=== PATIENT | female | born 2000 | race Caucasian/White ===

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

== ENCOUNTER 2022-03-06 14:53 | Emergency (ER) | payer OTHER, SELFPAY ==
[2022-03-06 15:03] VITALS: BP 109/79; PULSE 134; RESP 16; TEMP 38.8; O2SAT 98
--- NOTE | 2022-03-06 15:43 | ED.URI ---
HPI - URI/Sore Throat General Chief Complaint: Upper Respiratory Infection Stated Complaint: fever, sore throat, body ache, ear pain Time Seen by Provider: 03/06/22 15:39 Source: patient Mode of arrival: ambulatory Limitations: no limitations History of Present Illness HPI Narrative: Patient presents today complaining of a 3 day history of headache, sore throat, fever, body aches, chills. She currently rates her pain 7/10 and has been taking cold and flu medication as well as Tylenol without relief. She took a home COVID-19 test that was negative. Related Data Allergies Allergy/AdvReac Type Severity Reaction Status Date / Time No Known Allergies Allergy Verified 03/06/22 14:57 Review of Systems Review of Systems: CONSTITUTIONAL: Denies sweats.+ body aches, fever, chills EYES: Denies visual changes, redness, or discharge. ENT: Denies rhinorrhea, congestion, or otalgia.+ Sore throat CARDIOVASCULAR: Denies chest pain, palpitations, or edema. RESPIRATORY: Denies cough or dyspnea. GASTROINTESTINAL: Denies abdominal pain, nausea, vomiting, or diarrhea. GENITOURINARY: Denies dysuria or hematuria. SKIN: Denies rash, itching, or wounds. MUSCULOSKELETAL: Denies back pain, joint pain, or myalgia. NEUROLOGIC: Denies numbness, tingling, or weakness.+ headache PSYCH: Denies depression or anxiety. [facility] Past Medical History Medical History Migraines Family History Family History Grandparent Diabetes mellitus Lung cancer Father Hypertension Other Thyroid gland insufficiency (acquired) Social History Social History Smoking status: Never smoker Second hand tobacco smoke exposure: Yes Substance use: never Gender identity (if verbalized by the patient): Female Spiritual care concerns: No Comments At time of signature, I have reviewed and agree with nursing past medical, surgical, social and family history unless otherwise noted. Please see nursing chart for further information. There is no relevant family history pertinent to the presenting complaint Exam Narrative: GENERAL: mildly ill-appearing, well-nourished, and in no acute distress. HEAD: Normocephalic, atraumatic. EYES: EOMI. No redness or drainage. Conjunctivae normal. ENT: Mucous membranes pink and moist. Nares clear. No rhinorrhea. TMs normal bilaterally. Throat erythematous and moderately edematous. Tonsils 4+ with white exudate. Uvula midline. NECK: Normal AROM. Supple. bilateral anterior and left posterior cervical chain lymphadenopathy. CHEST: No respiratory distress. Clear to auscultation. HEART: Regular rhythm. + Tachycardia.No murmur appreciated. Normal peripheral pulses. EXTREMITIES: Normal range of motion. No edema. SKIN: Warm, dry, no rash. Capillary refill normal. Normal skin turgor. NEURO: No focal deficits. Alert and oriented x3. Gait steady. PSYCH: Normal affect. No signs of depression or anxiety. Course Course Level of Care: Express Care Visit Vital Signs Vital signs: Vital Signs Temperature 101.9 F H 03/06/22 15:03 Pulse Rate 134 H 03/06/22 15:03 Respiratory Rate 16 03/06/22 15:03 Blood Pressure 109/79 03/06/22 15:03 Pulse Oximetry 98 03/06/22 15:03 Oxygen Delivery Room Air 03/06/22 15:03 Temperature 101.9 F H 03/06/22 15:03 Pulse Rate 134 H 03/06/22 15:03 Respiratory Rate 16 03/06/22 15:03 Blood Pressure 109/79 03/06/22 15:03 Pulse Oximetry 98 03/06/22 15:03 Oxygen Delivery Room Air 03/06/22 15:03 Reviewed. Tachycardia due to fever MDM - URI/Sore Throat Differential Diagnosis Differential diagnosis: Likely upper respiratory infection, viral infection, influenza and other ( strep throat, COVID-19) Lab Data Attestation: I reviewed the patient's lab results. Labs: Influenza
== END 2022-03-06 15:54 | disposition home or self-care (01) ==
PROVIDERS: Emergency Provider Nurse Practitioner
DX: J02.0 Streptococcal pharyngitis (principal)
CPT/HCPCS: 87804; 87880; 99213; G0463

== ENCOUNTER 2023-05-06 12:20 | Emergency (ER) | payer OTHER, SELFPAY ==
[2023-05-06 12:46] VITALS: BP 142/90; PULSE 117; RESP 16; TEMP 36.8; O2SAT 100
--- NOTE | 2023-05-06 13:12 | ED.GENADULT ---
HPI - General Adult General Chief complaint: Vaginal Bleeding Stated complaint: vaginal bleeding for 10 days Time Seen by Provider: 05/06/23 13:13 Source: patient Mode of arrival: ambulatory Limitations: no limitations History of Present Illness HPI narrative: 23-year-old female presented for complaint of heavy vaginal bleeding for 10 days. States she is bleeding through super tampon and pads, passing clots, reports fatigue. And woke drenched in blood 2 days ago. 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 No form of control. She is sexually active. Endorses abdominal cramping and low back pain. States the back pain was severe several days ago while at work. Denies n/v/d/f/c. Related Data Home Medications Medication Instructions Recorded Confirmed No Home Medications 05/06/23 05/06/23 Allergies Allergy/AdvReac Type Severity Reaction Status Date / Time No Known Allergies Allergy Verified 05/06/23 13:02 Review of Systems Review of Systems: CONSTITUTIONAL: Denies body aches, fever, chills, or sweats. CARDIOVASCULAR: Denies chest pain, palpitations, or edema. RESPIRATORY: Denies dyspnea. GASTROINTESTINAL: reports abdominal cramping,denies nausea, vomiting, or diarrhea. GENITOURINARY: Reports vaginal bleeding Denies dysuria or hematuria. SKIN: Denies rash, itching, or wounds. MUSCULOSKELETAL: reports back pain, Denies joint pain, or myalgia. NEUROLOGIC: Denies headache, numbness, tingling, or weakness. All systems reviewed & are unremarkable except as noted in HPI and below PMFSH Past Medical History Medical History Migraines Family History Family History Grandparent Diabetes mellitus Lung cancer Father Hypertension Other Thyroid gland insufficiency (acquired) Social History Social History Smoking status: Never smoker Second hand tobacco smoke exposure: Yes Substance use: never Gender identity (if verbalized by the patient): Female Spiritual care concerns: No Comments At time of signature, I have reviewed and agree with nursing past medical, surgical, social and family history unless otherwise noted. Please see nursing chart for further information. There is no relevant family history pertinent to the presenting complaint Exam Narrative: GENERAL: Well-appearing, well-nourished, and in no acute distress. HEAD: Normocephalic, atraumatic. EYES: EOMI. No redness or drainage. Conjunctivae normal. ENT: Mucous membranes pink and moist. No rhinorrhea. TMs normal bilaterally. Throat normal. Uvula midline. NECK: Normal AROM. Supple. No lymphadenopathy. CHEST: No respiratory distress. Clear to auscultation. HEART: Regular rate and rhythm. No murmur appreciated. Normal peripheral pulses. ABDOMEN: Soft, nontender, nondistended, normal active bowel sounds. MUSCULOSKELETAL: No bony tenderness. EXTREMITIES: Normal range of motion. No edema. SKIN: Warm, dry, no rash. Capillary refill normal. Normal skin turgor. NEURO: No focal deficits. Alert and oriented x3. Gait steady. PSYCH: Normal affect. No signs of depression or anxiety. Course Course Emergency Course: Patient is aware of diagnosis, understands and agrees to treatment plan. Anticipatory guidance given. Patient agrees to follow-up as directed and is aware of reasons to seek care at the emergency department. Portions of this record may have been created with voice recognition software Level of Care: Express Care Visit Vital Signs Vital signs: Vital Signs Temperature 98.2 F 05/06/23 12:46 Pulse Rate 117 H 05/06/23 12:46 Respiratory Rate 16 05/06/23 12:46 Blood Pressure 142/90 H 05/06/23 12:46 Pulse Oximetry 100 05/06/23 12:46 Oxygen Delivery Room Air 05/06/23 12:46 Temperature 98.2 F 05/06/23 12:46 Pul
== END 2023-05-06 13:57 | disposition short-term general hospital (02) ==
PROVIDERS: Emergency Provider Nurse Practitioner Family
DX: O20.0 Threatened abortion (principal)
CPT/HCPCS: 81025; 99212; G0463

== ENCOUNTER 2024-03-31 16:13 | Observation (INO) | payer OTHER, SELFPAY ==
[2024-03-31] VITALS (10 sets, daily range): BP systolic 61–126; BP diastolic 51–84; PULSE 79–135; RESP 16; TEMP 36.5; O2SAT 97–100; BMI 34.7
--- NOTE | 2024-03-31 17:07 | OBADM ---
This patient, Nesha Wilcox, admitted to the OB room 116 for observation. Patient/family oriented to hospital policies and general routines including ID bracelet, bed and alarms, visiting hours, pain management, procedures, bathroom and other care routines, personal items, smoking policy, room service/diet, and visiting hours. Patient/Family are encouraged to report perceived risks to care and to ask questions if they do not understand what they are told or what they should do.
[2024-03-31 17:11] LABS: Add Urine Microscopic? YES; Appearance Urine Cloudy (Clear); Bacteria Urine 1+ /hpf; Bilirubin Urine Negative (Negative); Blood Urine Negative (Negative); Color Urine Yellow (Yellow); Glucose Urine UA Trace mg/dL (Negative); Ketones Urine Trace mg/dL (Negative); Leukocyte Esterase Ur 1+ LEU/UL (Negative); Need Manual Microscopic Reviewed; Nitrate Urine Negative (Negative); Non Pathogenic Casts 0-2; Protein Urine Trace mg/dL (Negative); Spermatozoa Urine Present; Squamous Epithelial Cell Urine Few /hpf (Few); pH Urine 6.5 (5.0-9.0)
--- NOTE | 2024-03-31 17:34 | PC.NURSE ---
Dr. María Ledezma informed of this 29 wk walk in pt with c/o lower abdominal cramping and back pain. Cramping since last night. Pt had intercourse last night. Pt has had back pain for the last 3-4 months. 2 contractions or uterine irritability noted. FHT's with 10 beat accels and appropriate for 29 wks. Pt was told by her provider that her placenta wasn't growing . When I questioned pt if it meant her placenta was low and wasn't moving up as the uterus grew, she said she had no idea and that she had asked them to explain it more but was only told that it sometimes happens. SVE was deferred and Dr. María Ledezma in agreement not to check pt. Pt isn't happy with her care at [facility] and would like to find another provider. Dr. María Ledezma states that he will accept her as a transfer of care and she is to call the office and make appointment. OK to dishcarge to home. Pt to increase fluid intake.
--- NOTE | 2024-03-31 18:02 | PC.NURSE ---
Pt is eating her dinner and will call when she is finished.
--- NOTE | 2024-04-03 16:00 | PM.OBTRLD ---
OB - Triage/Final Diagnosis Visit Information Reason for evaluation: threatened labor Comments/Additional reasons for admission: I have assessed the risk for this patient, Nesha Wilcox, and determined that she would benefit from observation care. Evaluation Laboratory results: Laboratory Tests 03/31/24 16:48 Urine Color Yellow Urine Appearance Cloudy H Urine pH 6.5 Ur Specific [place] 1.030 Urine Protein Trace Urine Glucose (UA) Trace H Urine Ketones Trace H Ur Blood (Man) Negative Urine Nitrate Negative Urine Bilirubin Negative Urine Urobilinogen 1.0 Add Ur Microanalysis Reviewed Leukocyte Esterase Rfl 1+ H Urine RBC 3-5 H Urine WBC 11-20 H Ur Squamous Epith Cells Few Urine Bacteria 1+ H Urine Casts 0-2 Sperm Presence Present
== END 2024-03-31 18:13 | disposition home or self-care (01) ==
PROVIDERS: Admitting Provider Obstetrics & Gynecology; Visit Provider Obstetrics & Gynecology
DX: O47.03 False labor before 37 completed weeks of gestation, third trimester (principal); Z3A.29 29 weeks gestation of pregnancy
CPT/HCPCS: 81001; 87086; G0378; G0379

== ENCOUNTER 2024-05-16 17:30 | Outpatient (RCR) | payer MEDICAID, SELFPAY ==
[2024-05-16 18:16] VITALS: BP 113/69; PULSE 98
== END 2024-06-30 16:43 | disposition home or self-care (01) ==
LOC: ANHOBOP 17:30
PROVIDERS: PCP Obstetrics & Gynecology; Visit Provider Obstetrics & Gynecology
DX: O36.8130 Decreased fetal movements, third trimester, not applicable or unspecified (principal); Z3A.35 35 weeks gestation of pregnancy
CPT/HCPCS: 59025

== ENCOUNTER 2024-06-06 11:09 | Outpatient (CLI) | payer OTHER, SELFPAY ==
[2024-06-06 11:30] VITALS: BP 129/79; PULSE 91; BMI 36.8
--- OUTSIDE RECORDS SUMMARY | 2024-06-06 11:56 | XMS_ITS | Data Portability ---
Author Organization [facility] , [facility] Address [address] [place] [address] Assessment No assessment recorded. Plan of Treatment Reminders Order Date Submit Date Provider Last Modified By Organization Details Last Modified Time Details Appointments None recorded. Lab afp (alpha-feto protein) panel, maternal screen, serum - na 2023 [employer] [facility], [address] [place], [address], 4 16:48:08 glucose tolerance test, post-50G, 1-hour 2023 024 [employer], [address] [place], [address], 4 11:50:52 CBC w/ auto diff 2023 024 [employer], [address] [place], [address], 4 12:27:33 obstetric screen, serum or blood 2023 024 [employer], [address] [place], [address], 4 13:24:14 Referral physical therapist referral [address] [facility] [place], [address] [facility], [place], [address], 4 16:20:27 Procedures None recorded. Surgeries None recorded. Imaging US, obstetric, maternal evaluation + anatomy 2023 024 [facility] Not available 07:21:00 Medication Orders None recorded. Patient TargetsNo targets recorded. Patient Instructions Encounter Date Encounter Id Patient Instructions Last Modified By Organization Details Last Modified Time 03/22/2024 [id number] learning about screening for gestational diabetes [email or web address] Not available 03/22/2024 10:32:37 Reason for Referral Physical Therapist Referral for Vertigo Referring Physician: Kaylan Randhawa, CHEMICAL SPRAYER, Encounter Date: 02/23/2024 Results Created Date Observation Date Name Description Value Unit Range Abnormal Flag Note LastModifiedBy Organization Detail LastModifiedTime 12/06/19 24 12/06/2023 [UNIT Y] ANEUP LOIDY NIPT fraction 8.7% normal Not Available [employer] [address] [place] [address], [address], 12/06/2023 17:46:34 12/06/19 24 12/06/2023 [UNIT Y] ANEUP LOIDY NIPT Rh(D) nipt RhD DETECT ED normal Not Available [employer] [facility] [place], [address], 12/06/2023 17:46:34 12/06/19 24 12/06/2023 [UNIT Y] ANEUP LOIDY NIPT sex chromosome aneuploidy NOT DETECT ED normal Not Available [employer] [facility] [place], [address], 12/06/2023 17:46:34 12/06/19 24 12/06/2023 [UNIT Y] ANEUP LOIDY NIPT monosomy X LOW RISK <1 in 10,000 normal Not Available [employer] [facility] [place], [address], 12/06/2023 17:46:34 12/06/19 24 12/06/2023 [UNIT Y] ANEUP LOIDY NIPT trisomy 13 LOW RISK <1 in 10,000 normal Not Available [employer] [facility], [place], [address], 12/06/2023 17:46:34 12/06/19 24 12/06/2023 [UNIT Y] ANEUP LOIDY NIPT trisomy 18 LOW RISK <1 in 10,000 normal Not Available [employer] [facility] [address] [facility], [place], [address], 12/06/2023 17:46:34 12/06/19 24 12/06/2023 [UNIT Y] ANEUP LOIDY NIPT trisomy 21 LOW RISK <1 in 10,000 normal Not Available [facility] [facility] [address] [facility], [place], [address], 12/06/2023 17:46:34 12/06/19 24 12/06/2023 [UNIT Y] ANEUP LOIDY NIPT sex MALE normal Not Available [facility] [address] [facility], [place], [address], 12/06/2023 17:46:34 12/06/19 24 12/06/2023 [UNIT Y] ANEUP LOIDY NIPT gestation SINGLE TON normal Not Available [facility] [address] [facility], [place], [address], 12/06/2023 17:46:34 12/06/19 24 12/06/2023 [UNIT Y] ANEUP LOIDY NIPT for detailed report, see pdf See PDF normal Not Available [facility] [address] [facility], [place], [address], 12/06/2023 17:46:34 12/07/19 24 12/07/2023 [UNIT Y] BELKYS [employer] sickle cell disease/beta -thalassemia /hemoglobino pathies carrier screen NEGATI VE normal Not Available [facility] [address] [facility], [place], [address], 12/07/2023 03:29:19 12/07/19 24 12/07/2023 [UNIT Y] BELKYS [employer] alpha-thalas semia carrier screen NEGATI VE normal Not Available [employer] [address], [place], [address], 12/07/2023 03:29:19 12/07/19 24 12/07/2023 [UNIT Y] BELKYS Ware cystic fibrosis carrier screen NEGATI VE normal Not Available [facility] [address], [place], [address], 12/07/2023 03:29:19 12/07/19 24 12/07/2023 [UNIT Y] BELKYS [employer] spinal muscular atrophy carrier screen NEGATI VE 2 SMN1 copies , SNP not presen t normal Not Available [employer] [address], [place], [address], 12/07/2023 03:29:19 12/07/19 24 12/07/2023 [UNIT Y] BELKYS Ware for detailed report, see pdf See PDF normal Not Available [employer] [address], [place], [address], 12/07/2023 03:29:19 11/29/19 24 11/30/2023 CBC (INCL UDES DIFF/ PLT) WBC 7.9 thous and/u L 4.0 - 9.8 normal Not Available [employer] [address] [place], [address], 12/01/2023 09:05:49 11/29/19 24 11/30/2023 CBC (INCL UDES DIFF/ PLT) RBC 4.4 ginger on/uL 3.9 - 4.9 normal Not Available [facility] [address] [place], [address], 12/01/2023 09:05:49 11/29/19 24 11/30/2023 CBC (INCL UDES DIFF/ PLT) hemoglobin 11.4 g/dL 11.8 - 14.8 low Not Available [place] [place], [address], 12/01/2023 09:05:49 11/29/19 24 11/30/2023 CBC (INCL UDES DIFF/ PLT) hematocrit 34.2 % 35.5 - 44.0 low Not Available [facility] [address] [place] [address], [address], 12/01/2023 09:05:49 11/29/19 24 11/30/2023 CBC (INCL UDES DIFF/ PLT) MCV 78.4 fL 82.0 - 99.0 low Not Available [facility] [address], [address], 12/01/2023 09:05:49 11/29/19 24 11/30/2023 CBC (INCL UDES DIFF/ PLT) MCH 26.1 pg 27.2 - 32.6 low Not Available [address], [address], 12/01/2023 09:05:49 11/29/19 24 11/30/2023 CBC (INCL UDES DIFF/ PLT) MCHC 33.3 g/dL 31.5 - 35.5 normal Not Available [place] [address], [address], 12/01/2023 09:05:49 11/29/19 24 11/30/2023 CBC (INCL UDES DIFF/ PLT) RDW-CV 14.1 % 11.5 - 14.5 normal Not Available [place], [address], 12/01/2023 09:05:49 11/29/19 24 11/30/2023 CBC (INCL UDES DIFF/ PLT) platelet 229 thous and/u L 140 - 350 normal Not Available [place] [employer] [address] [place] [address], [address], 12/01/2023 09:05:49 11/29/19 24 11/30/2023 CBC (INCL UDES DIFF/ PLT) MPV 12.2 fL 9.3 - 12.4 normal Not Available [place] [employer] [address] [place] [address], [address], 12/01/2023 09:05:49 11/29/19 24 11/30/2023 CBC (INCL UDES DIFF/ PLT) absolute neutrophil 5.81 thous and/u L 1.90 - 7.00 normal Not Available [address], [address], 12/01/2023 09:05:49 11/29/19 24 11/30/2023 CBC (INCL UDES DIFF/ PLT) absolute lymphocyte 1.68 thous and/u L 0.70 - 4.50 normal Not Available [address], [address], 12/01/2023 09:05:49 11/29/19 24 11/30/2023 CBC (INCL UDES DIFF/ PLT) absolute monocyte 0.35 thous and/u L 0.10 - 1.30 normal Not Available [address], [address], 12/01/2023 09:05:49 11/29/19 24 11/30/2023 CBC (INCL UDES DIFF/ PLT) absolute eosinophil 0.04 thous and/u L <0.70 normal Not Available [address], [address], 12/01/2023 09:05:49 11/29/19 24 11/30/2023 CBC (INCL UDES DIFF/ PLT) absolute basophil 0.02 thous and/u L <0.20 normal Not Available [address], [address], 12/01/2023 09:05:49 11/29/19 24 11/30/2023 CBC (INCL UDES DIFF/ PLT) absolute immature granulocyte 0.01 thous and/u L <0.03 normal Not Available [address], [address], 12/01/2023 09:05:49 11/29/19 24 11/30/2023 CT/NG chlamydia trachomatis CT neg negati ve normal This repor t is inten ded for us in clini timmy monit oring and manag ement of patie nts. It is not inten ded for use in medic al-le gal appli catio n. Not Available [place] [facility] [address] [place], [address], 12/01/2023 09:05:58 11/29/19 24 11/30/2023 CT/NG neisseria gonorrhoeae GC neg negati ve normal This repor t is inten ded for us in clini timmy monit oring and manag ement of patie nts. It is not inten ded for use in medic al-le gal appli catio n. Not Available [place] [facility] [address] [place], [address], 12/01/2023 09:05:58 11/29/19 24 12/01/2023 HEMOG LOBIN A1C hemoglobin A1C 4.7 % <5.7 normal The refer ence range for HbA1c is indic ated in the table below . Sugge sted Diagn osis =6.5% Consi stent with diabe marychuy 5.7 6.4% Consi stent with incre ased risk for diabe marychuy (pred iabet ic) <5.7% Consi stent with the absen ce of diabe marychuy Not Available [place] [facility] [address] [place], [address], 12/01/2023 12:16:53 11/29/19 24 12/01/2023 DRUG ABUSE PANEL 7 W/CON FIRM amphetamines Negati ve negati ve normal Not Available [place] [facility] [address] [place], [address], 12/01/2023 12:48:41 11/29/19 24 12/01/2023 DRUG ABUSE PANEL 7 W/CON FIRM barbiturates Negati ve negati ve normal Not Available [place] [facility] [address] [place], [address], 12/01/2023 12:48:41 11/29/19 24 12/01/2023 DRUG ABUSE PANEL 7 W/CON FIRM benzodiazepi nani Negati ve negati ve normal Not Available [place] [facility] [address] [place], [address], 12/01/2023 12:48:41 11/29/19 24 12/01/2023 DRUG ABUSE PANEL 7 W/CON FIRM cocaine metabolites Negati ve negati ve normal Not Available [place] [facility] [address] [place], [address], 12/01/2023 12:48:41 11/29/19 24 12/01/2023 DRUG ABUSE PANEL 7 W/CON FIRM cannabinoids Negati ve negati ve normal Not Available [place] [facility] [address] [place] [address], [address], 12/01/2023 12:48:41 11/29/19 24 12/01/2023 DRUG ABUSE PANEL 7 W/CON FIRM methadone Negati ve negati ve normal Not Available [place] [facility] [address] [place] [address], [address], 12/01/2023 12:48:41 11/29/19 24 12/01/2023 DRUG ABUSE PANEL 7 W/CON FIRM opiates Negati ve negati ve normal Not Available [place] [facility] [address] [place] [address], [address], 12/01/2023 12:48:41 11/29/19 24 12/01/2023 DRUG ABUSE PANEL 7 W/CON FIRM creatinine, urine 183 mg/dL 20 - 275 normal Not Available [place] [facility] [address] [place] [address], [address], 12/01/2023 12:48:41 11/29/19 24 12/01/2023 OB PANEL - STD BLOOD WORK hep BS Ag Non-Re active non-re active normal Not Available [place] [facility] [address] [place] [address], [address], 12/01/2023 14:17:06 11/29/19 24 12/01/2023 OB PANEL - STD BLOOD WORK hep C Ab Non-Re active non-re active normal Not Available [place] [facility] [address] [place] [address], [address], 12/01/2023 14:17:06 11/29/19 24 12/01/2023 OB PANEL - STD BLOOD WORK HIV 1/2 Ag/Ab Non-Re active non-re active normal Not Available [address], [address], 12/01/2023 14:17:06 11/29/19 24 12/01/2023 OB PANEL - STD BLOOD WORK syphilis Ab Non-Re active non-re active normal Not Available [address], [address], 12/01/2023 14:17:06 11/29/19 24 12/01/2023 OB PANEL - STD BLOOD WORK rubella Ab IgG 9.5 IU/mL low INTER PRETI VE INFOR MATIO N: Rubel la Antib chaitanya, IgG. < 5.0 IU/mL ..... ..... . Not consi stent with immun ity 5.0 - 9.9 IU/mL ..... . Equiv ocal: Indet ermin ate-R epeat testi ng in 10-14 days may be helpf ul. > or = 10.0 IU/mL ... Consi stent with immun ity The prese nce of Rubel la IgG antib chaitanya sugge st respo nse to immun izati on or prior /curr ent expos ure to the Rubel la virus . Not Available [address], [address], 12/01/2023 14:17:06 11/29/19 24 12/02/2023 THINP REP TIS PAP clinical information: normal None given Not Available [facility] [address] [place], [address], 12/02/2023 16:22:52 11/29/19 24 12/02/2023 THINP REP TIS PAP LMP: normal None given Not Available [facility] [address] [place], [address], 12/02/2023 16:22:52 11/29/19 24 12/02/2023 THINP REP TIS PAP prev. Pap: normal None given Not Available [address], [address], 12/02/2023 16:22:52 11/29/19 24 12/02/2023 THINP REP TIS PAP prev. BX: normal None given Not Available [address], [address], 12/02/2023 16:22:52 11/29/19 24 12/02/2023 THINP REP TIS PAP source: normal Cervi x Not Available [address], [address], 12/02/2023 16:22:52 11/29/19 24 12/02/2023 THINP REP TIS PAP statement of adequacy: normal Satis facto ry for evalu ation . Endoc ervic al/tr ansfo rmati on zone compo nent prese nt. Not Available [address], [address], 12/02/2023 16:22:52 11/29/19 24 12/02/2023 THINP REP TIS PAP general categorizati on: abnormal Cytol ogy Resul ts: Epith elial Cell Abnor malit y Not Available [address], [address], 12/02/2023 16:22:52 11/29/19 24 12/02/2023 THINP REP TIS PAP interpretati on/result: abnormal Atypi timmy Squam ous Cells of Undet ermin ed Signi fican ce (ASC- [place]) Not Available [address], [address], 12/02/2023 16:22:52 11/29/19 24 12/02/2023 THINP REP TIS PAP comment: normal This Pap test has been evalu ated with compu ter imelda susana techn ology . Sugge st clini timmy corre latio n and follo w-up as clini annie appro priat e Not Available [place] [address] [place], [address], 12/02/2023 16:22:52 11/29/19 24 12/02/2023 THINP REP TIS PAP cytotechnolo gist: normal BES, CT( CP) CT scree whit locat ion: [place] [address] [place] [address] Not Available [facility] [address] [address] [place], [address], 12/02/2023 16:22:52 11/29/19 24 12/02/2023 THINP REP TIS PAP pathologist: normal Eda seth M.D., Board Certi fied in Anato josiah Patho logy and Cytop athol ogy. Phone : [phone] (elec troni c signa ture) Not Available [place] [address] [address] [place], [address], 12/02/2023 16:22:52 11/29/19 24 12/02/2023 THINP REP TIS PAP comment EXPLA NATOR Y NOTE: The Pap is a scree whit test for cervi timmy cance r. It is not a diagn ostic test and is subje ct to false negat raheem and false posit raheem resul ts. It is most relia ble when a satis facto ry sampl e, regul rian obtai brandon, is submi tted with relev ant clini timmy findi ngs and histo ry, and when the Pap resul t is evalu ated along with histo vernon and curre nt clini timmy infor matio n. Not Available [place] [address] [address] [place], [address], 12/02/2023 16:22:52 11/29/19 24 12/06/2023 HPV HIGH RISK HPV high risk Negati ve negati ve normal The HPV High Risk assay is inten ded for use as co-te sting with cytol ogy and not as a subst itute for regul ar cervi timmy cytol ogy scree whit. This assay is not inten ded for use as a scree whit devic e for women under age 30 with eda l cervi timmy cytol ogy. Not Available [facility] [address] [place], [address], 12/06/2023 13:06:52 11/29/19 24 12/06/2023 VARIC ANGELA ZOSTE R VIRUS ANTIB CHAITANYA (IGG) varicella zoster virus antibody (IgG) <135.0 0 index low Index Inter preta tion ----- ---- ----- ----- ----- ----- -- <135. 00 Negat raheem - Antib chaitanya not detec susana 135.0 0 - 164.9 9 Equiv ocal > or = 165.0 0 Posit raheem - Antib chaitanya detec susana A posit raheem resul t indic ates that the patie nt has antib chaitanya to VZV but does not diffe renti ate betwe en an activ e or past infec tion. The clini timmy diagn osis must be inter prete d in conju nctio n with the clini timmy signs and sympt oms of the patie nt. This assay relia tamela measu res immun ity due to previ ous infec tion but may not be sensi tive enoug h to detec t antib odies induc ed by vacci natio n. Thus, a negat raheem resul t in a vacci nated indiv idual does not neces saril y indic ate susce ptibi lity to VZV infec tion. A more sensi tive test for vacci natio n-ind uced immun ity is Varic angela Zoste r Virus Antib chaitanya Immun ity Scree n, ACIF. Not Available [facility] [address] [place], [address], 12/06/2023 15:49:51 11/29/19 24 12/06/2023 HEMOG LOBIN OPATH Y EVALU ATION red blood cell count 4.39 ginger on/uL 3.80-5 .10 Not Available [address], [address], 12/06/2023 15:49:51 11/29/19 24 12/06/2023 HEMOG LOBIN OPATH Y EVALU ATION hemoglobin 11.4 g/dL 11.7-1 5.5 low Not Available [address], [address], 12/06/2023 15:49:51 11/29/1912/06/2023 HEMOG LOBIN OPATH Y EVALU ATION hematocrit 37.8 % 35.0-4 5.0 Not Available [address], [address], 12/06/2023 15:49:51 11/29/19 24 12/06/2023 HEMOG LOBIN OPATH Y EVALU ATION MCV 86.1 fL 80.0-1 00.0 Not Available [address], [address], 12/06/2023 15:49:51 11/29/19 24 12/06/2023 HEMOG LOBIN OPATH Y EVALU ATION MCH 26.0 pg 27.0-3 3.0 low Not Available [address], [address], 12/06/2023 15:49:51 11/29/19 24 12/06/2023 HEMOG LOBIN OPATH Y EVALU ATION RDW 14.5 % 11.0-1 5.0 Not Available [address], [address], 12/06/2023 15:49:51 11/29/19 24 12/06/2023 HEMOG LOBIN OPATH Y EVALU ATION hemoglobin A 97.1 % >96.0 Not Available [facility]. [place] [address] [place], [address], 12/06/2023 15:49:51 11/29/19 24 12/06/2023 HEMOG LOBIN OPATH Y EVALU ATION hemoglobin F <1.0 % <2.0 Not Available [facility] [address] [address] [place], [address], 12/06/2023 15:49:51 11/29/19 24 12/06/2023 HEMOG LOBIN OPATH Y EVALU ATION hemoglobin A2 (quant) 2.9 % 2.0-3. [address] [facility] [place] [address] [address] [place], [address], 12/06/2023 15:49:51 11/29/19 24 12/06/2023 HEMOG LOBIN OPATH Y EVALU ATION interpretati on Eda l pheno type. Eda l hemog lobin distr ibuti on, no HgS, HgC or other abnor mal hemog lobin obser debi. Not Available [facility] [address] [address] [place], [address], 12/06/2023 15:49:51 11/29/1912/06/2023 MEASL ES AB (IGG) , IMMUN E STATU S measles Ab (IgG), immune status 21.60 AU/mL normal AU/mL Inter preta tion ----- ----- ----- ---- <13.5 0 Not consi stent with immun ity 13.50 -16.4 9 Equiv ocal >16.4 9 Consi stent with immun ity The prese nce of measl es IgG sugge sts immun izati on or past or curre nt infec tion with measl es virus . For addit ional infor brenda valencia e refer to http: //veronica graysonQue stDia gnost ics.c om/fa q/FAQ 162 (This link is being provi ded for infor nicci yepez/ educa charlene l purpo ses only. ) Not Available [address] [address] [place], [address], 12/06/2023 15:49:52 11/29/19 24 12/06/2023 ANTIB CHAITANYA SCREE N, RBC W/REF L ID, TITER AND AG antibody screen, RBC w/refl id, titer and Ag NO ANTIBO DIES DETECT ED normal Refer ence range No antib odies detec susana This assay is a scree whit test for the detec tion of red blood cell antib odies . The test is not to be used for pretr ansfu ekaterina scree whit or for the medic al manag ement of an alloi mmuni zed pregn mónica. Not Available [address], [address], 12/06/2023 15:49:52 11/29/19 24 12/06/2023 ABO GROUP AND RH TYPE ABO group O Not Available [address] [address] [place], [address], 12/06/2023 15:49:53 11/29/19 24 12/06/2023 ABO GROUP AND RH TYPE Rh type RH(D) POSITI VE For addit ional infor brenda valencia e refer to http: //[facility] gabriele Rodriguez stDia gnost ics.c om/fa q/FAQ 111 (This link is being provi ded for infor nicci yepez/ educluís charlene l purpo ses only. ) Not Available [address] [address] [place], [address], 12/06/2023 15:49:53 11/29/19 24 12/06/2023 CULTU RE, URINE , ROUTI NE culture, urine, routine SEE NOTE CULTU RE, URINE , ROUTI NE Micro Numbe r: [id number] Test Statu s: Final Speci men Sourc e: Urine Speci men Quali ty: Adequ ate Resul t: No Growt h Not Available [facility] [address] [address] [place], [address], 12/06/2023 15:49:54 12/30/19 24 01/04/2024 MATER NAL SERUM AFP interpretati on: Scree n negat raheem for open NTD. Not Available [facility] [address] [address] [place], [address], 01/04/2024 16:48:08 12/30/19 24 01/04/2024 MATER NAL SERUM AFP risk for ontd <1 IN [address] Not Available [facility] [address] [address] [place], [address], 01/04/2024 16:48:08 12/30/19 24 01/04/2024 MATER NAL SERUM AFP AFP, serum 26.6 NG/mL Not Available [facility] [address], [address], 01/04/2024 16:48:08 12/30/19 24 01/04/2024 MATER NAL SERUM AFP AFP MOM 0.[address] [facility] [address], [address], 01/04/2024 16:48:08 12/30/19 24 01/04/2024 MATER NAL SERUM AFP comments: This patie nt's TAMMIE (alessandro mated date of ) was used to calcu late the gesta charlene l age. The AFP test resul t indic ates that this patie nt is scree n negat raheem for open NTD. It shoul d be noted that eda l test resul ts can never guara ntee the of a eda l baby and that 2-3% of [facility], avon rns have some type of physi timmy or menta l defec t, many of which are undet ectab le throu gh any known prena ulises diagn ostic techn ique. Not Available [facility] [address] [address] [place], [address], 01/04/2024 16:48:08 12/30/19 24 01/04/2024 MATER NAL SERUM AFP comment This is a scree whit test, not a diagn ostic test. This risk asses sment repor t is based in part on demog raphi c data provi ded by the order ezequiel brown. Pleas e notif y the labor atory promp tly if any data are incor rect. For imelda tance with recal culat ions, pleissa e call your local [facility] . For imelda tance with inter preta tion of these resul ts, pleas e conta ct your Local [facility] minesh ic couns elor or call [phone]( [phone]). Inter preti ve Cutof fs Scree n Posit raheem for Open NTD: > or = 2.50 adjus susana MOM > or = 1.90 adjus susana MOM for insul in-de pende nt diabe tics > or = 4.00 adjus susana MOM for twins > or = 3.50 adjus susana MOM for twins insul in-de pende nt diabe tics > or = 4.50 adjus susana MOM for tripl ets For addit ional infor brenda valencia e refer to http: //[facility] gabriele ware.que stdia gnost ics.c om/fa q/FAQ 74v1 (This link is being provi ded for infor nicci yepez/ educa charlene l purpo ses only. ) Not Available [facility] [address] [address] [place], [address], 01/04/2024 16:48:08 12/30/19 24 01/04/2024 MATER NAL SERUM AFP calc'd gestational age 16.0 weeks Not Available [employer] [facility] [address] [place], [address], 01/04/2024 16:48:08 12/30/19 24 01/04/2024 MATER NAL SERUM AFP maternal weight 182 lbs Not Available [employer] [facility] [address] [place], [address], 01/04/2024 16:48:08 12/30/19 24 01/04/2024 MATER NAL SERUM AFP est'd date of delivery 2024 Not Available [address], [address], 01/04/2024 16:48:08 12/30/19 24 01/04/2024 MATER NAL SERUM AFP tammie determined by ULTRAS OUND Not Available [address], [address], 01/04/2024 16:48:08 12/30/19 24 01/04/2024 MATER NAL SERUM AFP mother's ethnic origin CAUCAS RENETTA Not Available [address] [place], [address], 01/04/2024 16:48:08 12/30/19 24 01/04/2024 MATER NAL SERUM AFP number of fetuses 1 Not Available [address], [address], 01/04/2024 16:48:08 12/30/19 24 01/04/2024 MATER NAL SERUM AFP insulin depend diabetic NO Not Available [address] [place], [address], 01/04/2024 16:48:08 12/30/19 24 01/04/2024 MATER NAL SERUM AFP repeat specimen NO Not Available [address], [address], 01/04/2024 16:48:08 12/30/19 24 01/04/2024 MATER NAL SERUM AFP Hx of neural tube defects NO Not Available [address] [address] [place], [address], 01/04/2024 16:48:08 12/30/19 24 01/04/2024 MATER NAL SERUM AFP prev down synd NO Not Available [facility] [address] [place], [address], 01/04/2024 16:48:08 12/30/19 24 01/04/2024 MATER NAL SERUM AFP donor egg NO Not Available [employer] [facility] [address] [place], [address], 01/04/2024 16:48:08 12/30/19 24 01/04/2024 MATER NAL SERUM AFP donor age: egg retrieval NOT GIVEN Not Available [employer] [facility] [address] [place], [address], 01/04/2024 16:48:08 03/22/20 24 03/23/2024 (50G) 1HR - GLUCO SE CHELLE ANCE TEST, GESTA CHARLENE L SCREE N glucose (50g) 1 hour 94 mg/dL <135 normal Not Available [facility] [place] [facility] [address] [place], [address], 03/23/2024 11:50:52 03/22/20 24 03/23/2024 CBC (INCL UDES DIFF/ PLT) WBC 10.5 thous and/u L 4.0 - 9.8 high Not Available [place] [address] [place], [address], 03/23/2024 12:27:33 03/22/20 24 03/23/2024 CBC (INCL UDES DIFF/ PLT) RBC 4.3 ginger on/uL 3.9 - 4.9 normal Not Available [place] [address] [place], [address], 03/23/2024 12:27:33 03/22/20 24 03/23/2024 CBC (INCL UDES DIFF/ PLT) hemoglobin 11.3 g/dL 11.8 - 14.8 low Not Available [place] [address] [place], [address], 03/23/2024 12:27:33 03/22/20 24 03/23/2024 CBC (INCL UDES DIFF/ PLT) hematocrit 35.0 % 35.5 - 44.0 low Not Available [place] [address] [place], [address], 03/23/2024 12:27:33 03/22/20 24 03/23/2024 CBC (INCL UDES DIFF/ PLT) MCV 81.2 fL 82.0 - 99.0 low Not Available [address], [address], 03/23/2024 12:27:33 03/22/20 24 03/23/2024 CBC (INCL UDES DIFF/ PLT) MCH 26.2 pg 27.2 - 32.6 low Not Available [address], [address], 03/23/2024 12:27:33 03/22/20 24 03/23/2024 CBC (INCL UDES DIFF/ PLT) MCHC 32.3 g/dL 31.5 - 35.5 normal Not Available [address], [address], 03/23/2024 12:27:33 03/22/20 24 03/23/2024 CBC (INCL UDES DIFF/ PLT) RDW-CV 12.6 % 11.5 - 14.5 normal Not Available [address], [address], 03/23/2024 12:27:33 03/22/20 24 03/23/2024 CBC (INCL UDES DIFF/ PLT) platelet 242 thous and/u L 140 - 350 normal Not Available [address], [address], 03/23/2024 12:27:33 03/22/20 24 03/23/2024 CBC (INCL UDES DIFF/ PLT) MPV 12.3 fL 9.3 - 12.4 normal Not Available [address], [address], 03/23/2024 12:27:33 03/22/20 24 03/23/2024 CBC (INCL UDES DIFF/ PLT) absolute neutrophil 8.30 thous and/u L 1.90 - 7.00 high Not Available [address], [address], 03/23/2024 12:27:33 03/22/20 24 03/23/2024 CBC (INCL UDES DIFF/ PLT) absolute lymphocyte 1.77 thous and/u L 0.70 - 4.50 normal Not Available [address], [address], 03/23/2024 12:27:33 03/22/20 24 03/23/2024 CBC (INCL UDES DIFF/ PLT) absolute monocyte 0.30 thous and/u L 0.10 - 1.30 normal Not Available [address], [address], 03/23/2024 12:27:33 03/22/20 24 03/23/2024 CBC (INCL UDES DIFF/ PLT) absolute eosinophil 0.09 thous and/u L <0.70 normal Not Available [address], [address], 03/23/2024 12:27:33 03/22/20 24 03/23/2024 CBC (INCL UDES DIFF/ PLT) absolute basophil 0.04 thous and/u L <0.20 normal Not Available [address], [address], 03/23/2024 12:27:33 03/22/20 24 03/23/2024 CBC (INCL UDES DIFF/ PLT) absolute immature granulocyte 0.02 thous and/u L <0.03 normal Not Available [address], [address], 03/23/2024 12:27:33 03/22/20 24 03/23/2024 OB 28W (SYPH HIV 1/2 Ag/Ab Non-Re active non-re active normal Not Available [address], [address], 03/23/2024 13:24:14 03/22/20 24 03/23/2024 OB 28W (SYPH syphilis Ab Non-Re active non-re active normal Not Available [place] [address] [place], [address], 03/23/2024 13:24:14 01/28/20 24 01/26/2024 US, obste tric, mater nal evalu ation + anato my No observ ation record ed. [facility], [place], [address], 01/30/2024 19:21:01 Result Notes None recorded. Problems Name Problem SNOMED Code Status Onset Date Resolution Date Notes Provider Name and Address Organization Details Recorded Time Body mass index 30+ - obesity 217561649 Active 024 [facility] [address] [place], [address], [facility] IV 4 11:06:37 54148998 Active 024 Monik Rubi null, [employer] [facility] IV 4 09:17:59 Problem Notes None recorded. Procedures Surgical History Date Name Laterality Status Provider Name and Address Organization Details Recorded Time 11/29/2023 Date of Last Pap Smear completed [facility]PH [facility] [place] [address] [place], [address], [place] [facility] IV 11/29/2023 11:35:24 Imaging Results Imaging Date Name Status LastModified by Organiz ation Details LastModified Time 01/26/2024 US, obstetric, maternal evaluation + anatomy completed [facility] [address], [place], [address], 01/30/2024 19:21:01 Procedure Notes None recorded. Medical Equipment None Reported. Allergies No known drug allergies Medications Name Sig Start Date Stop Date Status Note LastModified by Organization Details LastModified Time meclizine 25 mg tablet 03/22 completed Not Available Not Available Not Available cephalexin 500 mg capsule 01/25 completed Not Available Not Available Not Available ondansetron 4 mg disintegrati ng tablet 01/25 completed Not Available Not Available Not Available Unisom (doxylamine) 25 mg tablet Take 1/2 or 1 tablet at bedtime 01/25 completed Not Available Not Available Not Available Vitamin 27 mg iron-0.8 mg tablet Take 1 tablet every day by oral route. 2023 active Not Available Not Available Not Avai lable Se-Cat-19 29 mg iron-1 mg tablet TAKE ONE TABLET BY MOUTH EVERY DAY 01/25 completed Not Available Not Available Not Available Vitals Date Recorded Body height Body mass index (BMI) Body weight Body temperature Systolic blood pressure Diastolic blood pressure Provider Name and Address Organization Details Last Updated DateTime 4 160.02 cm 32.4 kg/m2 95913.6 9 g 97.8 [degF] 114 mm[Hg] 70 mm[Hg] Monik Dhillonell [facility] [employer] IV 4 12:32:02 Date Recorded Body height Body mass index (BMI) Body weight Body temperature Systolic blood pressure Diastolic blood pressure Provider Name and Address Organization Details Last Updated DateTime 4 160.02 cm 32.6 kg/m2 05125.9 9608 g 97 [degF] 120 mm[Hg] 60 mm[Hg] Dominik Quigley [facility] IV 4 13:17:23 Date Recorded Body height Body mass index (BMI) Body weight Systolic blood pressure Diastolic blood pressure Provider Name and Address Organization Details Last Updated DateTime 02/23/2024 160.02 cm 34 kg/m2 66498.01 6566 g 100 mm[Hg] 60 mm[Hg] Antonio Mclean [facility] IV 4 10:35:27 Date Recorded Body height Body mass index (BMI) Body weight Systolic blood pressure Diastolic blood pressure Provider Name and Address Organization Details Last Updated DateTime 03/22/2024 160.02 cm 34.7 kg/m2 59178.39 g 120 mm[Hg] 80 mm[Hg] NitoDannyGerri [facility] IV 4 10:15:16 Date Recorded Body weight Body mass index (BMI) Body height Systolic blood pressure Diastolic blood pressure Provider Name and Address Organization Details Last Updated DateTime 04/05/2024 85111.28 926 g 35.1 kg/m2 160.02 cm 116 mm[Hg] 74 mm[Hg] Heidi Gray [facility] IV 10:13:47 Social History Question Answer Notes LastModified by Organizat ion Details LastModified Time Tobacco Smoking Status Never Smoker Skye nina [employer] IV 05/10/2023 15:22:12 What Is Your Level Of Alcohol Consumption? Occasional Information not available 05/10/2023 How Many Times Per Week Do You Consume Alcohol? Less Than 1 Time Per Week Information not available 05/10/2023 If You Are , What Was Your Level Of Alcohol Consumption Prior To ? None Information not available 05/10/2023 Are You Blind Or Do You Have Difficulty Seeing? No Information not available 05/10/2023 Are You Currently Employed? Yes [email or web address] Information not available 11/08/2023 Are You Deaf Or Do You Have Serious Difficulty Hearing? No Information not available 05/10/2023 What Type Of Diet Are You Following? REGULAR Information not available 05/10/2023 How Many Children Do You Have? 1 Information not available 05/10/2023 What Is Your Relationship Status? Single Information not available 05/10/2023 Are You Sexually Active? Yes Information not available 05/10/2023 Do You Use Any Illicit Or Recreational Drugs? No Information not available 05/10/2023 Do You Or Have You Ever Used Any Other Forms Of Tobacco Or Nicotine? No Information not available 05/10/2023 Sex: Unknown Functional Status Question Answer Note LastModified by Organizat ion Details LastModified Time What is your exercise level? Occasional Information not available 05/10/2023 Mental Status None recorded. Family History Relationship Description Onset Age of this Age Resolved Age Notes LastModified by Organization Details LastModified Time Maternal Grandmother Diabetes mellitus Not available 2023 15:20:28 Father Cerebrovascu lar accident Not available 12/2023 15:20:44 Sister Malignant tumor of ovary Not available 2023 15:21:14 Medical History Condition Response Other Cancer N High Blood Pressure N Colon Cancer N Cytomegalovirus N Hyperthyroidism N Herpes (HSV) N Breast Cancer N Blood Transfusion N MRSA N Lung Cancer N Hypothyroidism N Depression N Incontinence N Panic Attacks N Neurological Disorder N Deep Vein Thrombosis N Anxiety Disorder N Autoimmune disease N Arthritis N Tuberculosis/Positive PPD N Shingles N Polycystic Ovarian Syndrome N Infertility N Cervical Cancer N Chlamydia N Hematuria N Stroke N Varicosities N Crohn's Disease N Seasonal allergies N Alzheimer's/Dementia N COPD/Emphysema N HPV/Genital Warts N Endometriosis N IBS (Irritable Bowel Syndrome) N History of Abnormal Pap N High Cholesterol N Liver Disease N Kidney Infection N Fibromyalgia N Ulcer N Kidney Disease N HIV N Gallbladder disease N Sickle Cell Disease/Trait N Von Willebrand disease N ADD/ADHD N Eating Disorder N Anemia N Diabetes Mellitus (non-insulin dependent ) N Ovarian Problems N Multiple Sclerosis N Gonorrhea N Frequent Urinary Tract infections N Osteopenia N Headaches/migraines N GERD (reflux) N Ovarian Cancer N Diabetes (insulin dependent) N Seizures/Epilepsy N Breast Problems N Fibroids N Heart Attack N Asthma N Lupus N Endometrial Cancer N Rubella N Blood Clotting Disorder N Bipolar Disorder N Diabetes Mellitus (during ) N Ulcerative Colitis N Hepatitis N Heart Disease N Pulmonary Embolism N RPR N Chicken Pox N Osteoporosis N Gynecological History Statement/Question Response Date of Last Colonoscopy Flow Moderate Date of last HPV 11/29/2023 Most Recent Bone Density HPV Vaccine N Date of Last Pap Smear 11/29/2023 Duration of Flow (days) 5 Most Recent Mammogram Current Control Method Age at Menarche 15 Obstetrics History GPAL:G 3 P 1 0 1 1 Type Value Full Term 1 Spontaneous 1 Living 1 Total 3 Past Encounters Encounter ID Performer Location Encounter Start Date Encounter Closed Date Diagnosis/Indication Diagnosis SNOMED-CT Code Diagnosis ICD10 Code Diagnosis Note [id number] Shannon Matos CNM [facility] [address] [place] [address] 05/10/2023 15:00:11 05/10/2023 17:00:28 Threatened miscarriage 37704564 O20.0 Ultrasound does not reveal IUP. Will obtain serial quants. Strict precaution s reviewed. [id number] CHRISTIAN ALBERTS [facility]_[address] [address] 11/08/2023 10:29:30 11/08/2023 11:30:14 test positive 806151077 Z32.01 Pt presents today for a confirmati on of visit. has not been previously confirmed at another healthcare facility. Pt voiced that she is happy about this . TVUS today showed:IUP with Cardiac Activity. TAMMIE based on this US. TAMMIE: 06/15/2024G estational Age: 8w 4dFHT: 176 First trimester teaching provided.- --Foods and activities to avoid---We ight gain recommenda tions based on BMI---Safe meds---Maol entation to practice-- -Delivery locations- --[facility] visit progressio n---Prenat al vitamins daily---To xoplasmosi s precaution s reviewed-- -[facility] Guide; What to expect on your maternity journey -- -S/S of SAB reviewed and when to seek care RTC for 1st OB, Labs, and Physical. --BMI: 32.7 Body mass index 30+ - obesity 374820301 Z68.32 BMI: 32.7 at Confirmati on Visit Nausea 659684701 R11.0 Pt reports ER gave her Zofran. They are dissolvabl e. Pt states she can't keep any pills down. Recommende d suppositor ies, pt declines. [id number] CHRISTIAN ALBERTS [address] [address] 11/29/2023 11:16:09 11/29/2023 12:05:00 Cancer cervix screening status 396888209 Z12.4 screening 2437 680[address] Z36.89 Carrier de tection, molecular genetics 5799195 Z14.8 Gestation period, 11 weeks 45371079 Z3A.11 Guide: Given and reviewed. Toxoplasmo sis precaution s reviewed. Reviewed office visit schedule during . Reviewed Quickening and normal FHTs. Body mass index 30+ - obesity 873928406 Z68.32 BMI: 32.7 at Confirmati on Visit [id number] CHRISTIAN ALBERTS [address] [place] [address] 12/30/2023 12:25:56 12/31/2023 11:24:21 screening 714978777 Z36.9 Gestation period, 16 weeks 42438110 Z3A.16 care status 24 2869621 Z34.92 Pt is here for a [facility] appointmen t. She is taking vitamins. She has no complaints or questions. Has not felt movement yet. Denies vaginal bleeding, abdominal cramps, N/V, contractio ns, or LOF. Denies headache, vision changes, swelling of hands or face, and epigastric pain. Discussed PTL and precaution s given. There are no identifiab le risk factors for pre-term labor. Reminded pt that I do not delivery babies. Will plan for pt to start meeting delivery providers after 28 week visit. [id number] Kaylan Lopez is, [address] [address] 01/26/2024 12:31:37 01/26/2024 14:35:48 care status 075930918 Z34.92 Normal 7266599 2 Z34.82 [id number] Kaylan chapa, [address] [address] 02/23/2024 09:55:21 02/23/2024 11:40:51 Normal 15768418 Z34.82 Gestation period, 23 weeks 76030541 Z3A.23 Vertigo 910772973 R42 [id number] Kaylan Lopez is, [address] [address] 03/22/2024 10:03:40 03/22/2024 13:56:48 Gestation period, 27 weeks 65381907 Z3A.27 Normal 3231705 2 Z34.82 screening 2437 [address] Z36.89 [id number] SHAKA QUINONEZ NP [address] [address] 04/05/2024 10:04:19 04/05/2024 10:40:35 Gestation period, 29 weeks 42524994 Z3A.29 Normal 8584143 2 Z34.93 Pt is here for a [facility] appointmen t. She is taking vitamins. She has no complaints or questions. Reports feeling movement. Denies vaginal bleeding, abdominal cramps, N/V, contractio ns, or LOF. Denies headache, vision changes, swelling of hands or face, and epigastric pain. Discussed PTL and precaution s given. There are no identifiab le risk factors for pre-term labor. Health Concerns Section Related Observation LastModified by Organization Detai ls LastModified Time None Recorded Concern Status LastModified by Organization Details LastModified Time None Recorded Advance Directives Directive None Recorded Payers Encounter Date Sequence Insurance Name Policy Number Policy Ulrich Covered Member ID Ulrich Member ID Guarantor Name 12/30/2023 1 [employer] (MEDICAID HMO) [id number] Nesha Anabelle McNatt [id number] Nesha McNatt 01/26/2024 1 [employer] (MEDICAID HMO) [id number] Nesha Anabelle McNatt [id number] Nesha McNatt 02/23/2024 1 [employer] (MEDICAID HMO) [id number] Nesha Anabelle McNatt [id number] Nesha McNatt 03/22/2024 1 [employer] (MEDICAID HMO) [id number] Nesha Anabelle McNatt [id number] Nesha McNatt Notes Date Note Type Note Provider Name and Address Organization Details Recorded Time 12/30/2023 text/html Patient is here today for a routine OB visit. She is currently at {{6 7 8 9 10 11 1 2 13 14 15 16 17 18 19 20 21 22 23 24 25 26 27 28 2 9 30 31 32 33 34 35 36 37 38 39 40 41 16.0#}} weeks gestation. vitamins: {{yes* no}} She {{has has not*}} felt movement. Nesha has been having severe lower abdominal pain and back pain every since she has gotten . It's also hard for her to turn her head because of pain. She denies any complaints of the presence of vaginal bleed, leaking fluid, abdominal cramps, nausea, vomiting, headache or visual disturbances. JOSEPH VILLA, [place] [id number] [facility] [place], [address], [facility] IV 12/30/2023 12:48:17 01/26/2024 text/html Patient is here today for a routine OB visit. She is currently at {{6 7 8 9 10 11 1 2 13 14 15 16 17 18 19 20 21 22 23 24 25 26 27 28 2 9 30 31 32 33 34 35 36 37 38 39 40 41 19.6#}} weeks gestation. vitamins: {{yes* no}} She {{has* has not}} felt movement. She denies any complaints of the presence of vaginal bleed, leaking fluid, abdominal cramps, nausea, vomiting, headache or visual disturbances.Isabel ent c/o pains in her back and lower part of the stomach since last night Kaylan Kingston, [place] [address] [id number] [place], [address], [facility] [employer] IV 01/26/2024 14:35:17 02/23/2024 text/html Patient is here today for a routine OB visit. She is currently at {{6 7 8 9 10 11 1 2 13 14 15 16 17 18 19 20 21 22 23 24 25 26 27 28 2 9 30 31 32 33 34 35 36 37 38 39 40 41 23.6#}} weeks gestation. vitamins: {{yes* no}} She {{has* has not}} felt movement. She denies any complaints of the presence of vaginal bleed, leaking fluid, abdominal cramps, nausea, vomiting, headache or visual disturbances. Pt states she was in the ER because she fainted. Pt c/o abd pain. Pt states the medicine for vertigo makes her sleepy. Kaylan Thee, [address] [facility], [place], [address], [facility] [employer] IV 02/23/2024 11:23:42 03/22/2024 text/html Patient is here today for a routine OB visit. She is currently at {{6 7 8 9 10 11 1 2 13 14 15 16 17 18 19 20 21 22 23 24 25 26 27 28 2 9 30 31 32 33 34 35 36 37 38 39 40 41 27.6#}} weeks gestation. vitamins: {{yes* no}} She {{has* has not}} felt movement.She denies any complaints of the presence of vaginal bleed, leaking fluid, abdominal cramps, nausea, vomiting, headache or visual disturbances. Pt c/o of back pain and stomach. Kaylan Kingston, [address] [facility], [place], [address], [facility] [employer] 03/22/2024 10:33:21 04/05/2024 text/html Patient is here today for a routine OB visit. She is currently at {{6 7 8 9 10 11 1 2 13 14 15 16 17 18 19 20 21 22 23 24 25 26 27 28 2 9 30 31 32 33 34 35 36 37 38 39 40 41 29.6#}} weeks gestation. vitamins: {{yes* no}} She {{has* has not}} felt movement.She denies any complaints of the presence of vaginal bleed, leaking fluid, abdominal cramps, nausea, vomiting, headache or visual disturbances. Pt c/o of back pain and stomach. Pt. went to ER on 03-31-24 at [facility] in [place] for contractions. Pt. is wanting to get her placenta checked. SHAKA QUINONEZ NP [address] [place], [address], [facility] [employer] 04/05/2024 10:35:55 OBGyn Episode Ob Episode Information Episode Created Date Number of Fetuses Patient Bloodtype Patient rh Status Prepregnancy Weight lbs Domestic Partner Domestic Partner Phone Father Name Flat Hammerer Status 04/05/20 24 1 CLOSED Fetus Data First Name Last Name Admitted to NICU Weight (g) Sex Living Outcome Pediatric Complications Fetus ID Race Codes Race Delivery Type , Spontane ous [id number] Tammie Calculation Initial Tammie Date Initial Exam Date Initial Exam Provider Initial Ultrasound Date Last Menstrual Period Date Ultra Sound Weeks Gestation 0 Eighteen To Twenty Week Tammie Update Ultra Sound Date Fundal Height At Umbil Quickening Date Ultra Sound Latest Weeks Gestation Final Tammie Confirmed By Final Tammie Confirmed Date Final Tammie Date Ultra Sound Latest Days Gestation 0 0 Menstrual History Last Menstrual Date Menses Monthly On Bcp Conception Prior Menses Frequency Hcg Plus Date Menarche Onset Age Delivery Information Delivery Date Delivery Type Labor Anesthesia Weeks Gestation Incision Type Labor Labor Length Hrs Delivered By Post Complications Tubal Sterilization Discharge Date Comments Discharge Information Feeding Method Contraceptive Method Maternal HG B and HCT Levels Ob Episode Information Episode Created Date Number of Fetuses Patient Bloodtype Patient rh Status Prepregnancy Weight lbs Domestic Partner Domestic Partner Phone Father Name Flat Hammerer Status 11/29/19 24 1 O Positive OPEN Fetus Data First Name Last Name Admitted to NICU Weight (g) Sex Living Outcome Pediatric Complications Fetus ID Race Codes Race Delivery Type Tammie Calculation Initial Tammie Date Initial Exam Date Initial Exam Provider Initial Ultrasound Date Last Menstrual Period Date Ultra Sound Weeks Gestation 06/15/2024 11/29/2023 0 Eighteen To Twenty Week Tammie Update Ultra Sound Date Fundal Height At Umbil Quickening Date Ultra Sound Latest Weeks Gestation Final Tammie Confirmed By Final Tammie Confirmed Date Final Tammie Date Ultra Sound Latest Days Gestation 0 0 Pre-cat Flowsheet Flowsheet Date 11/29/2023 Hernandez Score Blood Edema Fundus Height Fundus Units Glucose Ketones Leukocytes Nitrite Labor Signs Protein Cervic Dilation Cervic Effacement Cervic Station none Type Weight in lbs Pre/Post Dialysis Refused With clothes 182.162927885903 BP Diastolic BP Location Tested BP Systolic BP Type 68 112 sitting Fetus Heart Rate Present A 162 Present Fetus Movement Comments NOB labs and UNITY done toismael y. PAP Collected today. Pre- BMI: 32.7. RTC 4 weeks. Flowsheet Date 12/30/2023 Hernandez Score Blood Edema Fundus Height Fundus Units Glucose Ketones Leukocytes Nitrite Labor Signs Protein Cervic Dilation Cervic Effacement Cervic Station none Type Weight in lbs Pre/Post Dialysis Refused With clothes 182.341780249534 BP Diastolic BP Location Tested BP Systolic BP Type 70 114 sitting Fetus Heart Rate Present A 152 Present Fetus Movement Comments No OB complaints. Maternal S carlos AFP collected today. Anatomy next visit. Flowsheet Date 01/26/2024 Hernandez Score Blood Edema Fundus Height Fundus Units Glucose Ketones Leukocytes Nitrite Labor Signs Protein Cervic Dilation Cervic Effacement Cervic Station none neg Type Weight in lbs Pre/Post Dialysis Refused With clothes 184.113961620364 BP Diastolic BP Location Tested BP Systolic BP Type 60 120 sitting Fetus Heart Rate Present A 144 Fetus Movement A Yes Comments 41%ile, male, ant placenta a natomy complete Flowsheet Date 02/23/2024 Hernandez Score Blood Edema Fundus Height Fundus Units Glucose Ketones Leukocytes Nitrite Labor Signs Protein Cervic Dilation Cervic Effacement Cervic Station 22 cm none neg Type Weight in lbs Pre/Post Dialysis Refused With clothes 191.100692050152 BP Diastolic BP Location Tested BP Systolic BP Type 60 100 sitting Fetus Heart Rate Present A 151 Fetus Movement A Yes Comments 3T labs next visit, Vertigo will refer to PT Flowsheet Date 03/22/2024 Hernandez Score Blood Edema Fundus Height Fundus Units Glucose Ketones Leukocytes Nitrite Labor Signs Protein Cervic Dilation Cervic Effacement Cervic Station none trace Type Weight in lbs Pre/Post Dialysis Refused With clothes 195.872488626810 BP Diastolic BP Location Tested BP Systolic BP Type 80 120 sitting Fetus Heart Rate Present Fetus Movement A Yes Comments Flowsheet Date 04/05/2024 Hernandez Score Blood Edema Fundus Height Fundus Units Glucose Ketones Leukocytes Nitrite Labor Signs Protein Cervic Dilation Cervic Effacement Cervic Station trace 28 cm none Rogers Jordan neg Type Weight in lbs Pre/Post Dialysis Refused 198.377837489596 BP Diastolic BP Location Tested BP Systolic BP Type 74 116 sitting Fetus Heart Rate Present A 156 Present Fetus Movement A Yes Comments c/o RLP and luann jordan. P TL precautions reviewed. RTC in 2 wks Menstrual History Last Menstrual Date Menses Monthly On Bcp Conception Prior Menses Frequency Hcg Plus Date Menarche Onset Age Genetic Screening And Infection History Question Response Note Patient's Age Will Be 35 Years Or Older At Estim ated Date of Delivery false Personal or Family History o f Neural Tube Defect (Meningomyelocele, Spina Bifida, Or Anencephaly) false Personal or Family History of Congenital Heart D efect false Maternal Metabolic Disorder (eg, Type 1 Diabetes , PKU) false Recurrent Loss, Or A Stillbirth false Patient Or Partner Has History Of Genital Herpes false Prior GBS-infected child false History of HIV false History of Hepatitis false Genetic Carrier Screen positive false Delivery Information Delivery Date Delivery Type Labor Anesthesia Weeks Gestation Incision Type Labor Labor Length Hrs Delivered By Post Complications Tubal Sterilization Discharge Date Comments Discharge Information Feeding Method Contraceptive Method Maternal HG B and HCT Levels Ob Episode Information Episode Created Date Number of Fetuses Patient Bloodtype Patient rh Status Prepregnancy Weight lbs Domestic Partner Domestic Partner Phone Father Name Flat Hammerer Status 05/10/19 24 1 CLOSED Fetus Data First Name Last Name Admitted to NICU Weight (g) Sex Living Outcome Pediatric Complications Fetus ID Race Codes Race Delivery Type 3883.65 [id number] Full Term [id number] Tammie Calculation Initial Tammie Date Initial Exam Date Initial Exam Provider Initial Ultrasound Date Last Menstrual Period Date Ultra Sound Weeks Gestation 0 Eighteen To Twenty Week Tammie Update Ultra Sound Date Fundal Height At Umbil Quickening Date Ultra Sound Latest Weeks Gestation Final Tammie Confirmed By Final Tammie Confirmed Date Final Tammie Date Ultra Sound Latest Days Gestation 0 0 Menstrual History Last Menstrual Date Menses Monthly On Bcp Conception Prior Menses Frequency Hcg Plus Date Menarche Onset Age Delivery Information Delivery Date Delivery Type Labor Anesthesia Weeks Gestation Incision Type Labor Labor Length Hrs Delivered By Post Complications Tubal Sterilization Discharge Date Comments 0 38 Discharge Information Feeding Method Contraceptive Method Maternal HG B and HCT Levels
--- OUTSIDE RECORDS SUMMARY | 2024-06-06 11:56 | XMS_ITS | Clinical Summary ---
Author Organization [facility] Address [facility] [place] [address] [place] [address] Care Team Providers Care Electronic Calibration Technician Name Role Phone None, Provider MD Primary Care Provider Unavaila ble Allergies No known active allergies Medications cyclobenzaprine (FLEXERIL) 10 MG tablet Take 1 tablet (10 mg total) by mouth 3 (three) times daily as needed for Muscle Spasms. 16 tablet 2 Active Vit-Fe Fumarate-FA (/FOLIC ACID) Tab Take 1 tablet by mouth daily. 30 tablet 4 Active ondansetron (ZOFRAN-ODT) 4 MG disintegrating tablet Take 1 tablet (4 mg total) by mouth every 8 (eight) hours as needed. 15 tablet 4 Active Social History Tobacco Use Types Packs/Day Years Used Date Smoking Tobacco: Never Smokeless Tobacco: Never Tobacco Cessation:Counseling Given: Not Answered Alcohol Use Standard Drinks/Week Comments Never 0 (1 standard drink = 0.6 oz pur e alcohol) Comments Yes Sex and Gender Information Value Date Recorded Sex Assigned at Not on file Legal Sex Female 7:22 PM CDT Gender Identity Not on file Sexual Orientation Not on file Last Filed Vital Signs Vital Sign Reading Time Taken Comments Blood Pressure 122/77 02/09/2024 2:36 PM CDT Pulse 97 02/09/2024 2:36 PM CDT Temperature 36.4 ??C (97.5 ??F) 02/09/2024 2:36 PM CD T Respiratory Rate 16 02/09/2024 2:36 PM CDT Oxygen Saturation 100% 02/09/2024 2:36 PM CDT Inhaled Oxygen Concentration - - Weight 86.1 kg (189 lb 13.1 oz) 02/09/2024 2:36 PM CDT Height 160 cm (5' 3 ) 02/09/2024 2:36 PM CDT Body Mass Index 33.62 02/09/2024 2:36 PM CDT Plan of Treatment Health Maintenance Due Date Last Done Comments Cervical Cancer Screening Pap Smear (Age 21 to 29) Every 3 Years 2001 Cervical Cancer Screening 2001 Annual Physical 2004 Chlamydia Screening Females ages 16-24 2017 Meningococcal B Vaccine (1 of 2 - Standard) 2017 Hepatitis C 2019 COVID-19 Vaccine (2023-25 season) 2024 Influenza Adult (#1) 2024 DTaP, Tdap and Td Vaccines (8 - Td or Tdap) 07/05/2029 07/06/2019, 10/27/2012, 07/21/2006, Additional history exists RSV Immunization or 60+ Years (1 - 1-dose 75+ series) 2076 Pneumococcal Vaccine: Pediatrics (0 to 5 Years) and At-Risk Patients (6 to 64 Years) Aged Out 2001, 2001, 2001 No longer eligible based on patient's age to complete this topic Hepatitis B Vaccines Completed 06/12/2002, 2001, 2001 HPV Vaccines Completed 02/13/2016, 09/01, 10/27/2012 Meningococcal Vaccine Completed 08/30/2018, 013 RSV Immunizations Under 20 Months Aged Out No longer eligible based on patient's age to complete this topic Insurance ETHEL Care Teams Electronic Calibration Technician Relationship Specialty Start Date End Date None, Provider, PCP - General UNKNOWN PHYSICIAN SPECIALTY 03/27/22
[2024-06-06 12:11] VITALS: BP 129/79; PULSE 91
[2024-06-06 12:31] LABS: Basophils Percent Auto 0.2 % (0.2-1.2); Eosinophils Percent Auto 0.4 % (0-4.4); Hematocrit 32.8 % (37.0-47.0); Hemoglobin 10.4 g/dL (12.0-15.0); Immature Granulocyte Absolute 0.04 K/mm3 (0.00-0.031); Immature Granulocyte Percent A 0.4 % (0-0.5); Lymphocytes Absolute Auto 1.92 K/mm3 (0.9-3.2); Lymphocytes Percent Auto 19.1 % (18.3-44.2); Mean Corpuscular HGB Conc 31.7 g/dl (32-36); Mean Platelet Volume 12.1 fl (7.4-10.4); Monocytes Absolute Auto 0.5 K/mm3 (0.1-0.6); Monocytes Percent Auto 5.1 % (2.6-8.5); Neutrophils Absolute Auto 7.5 K/mm3 (1.3-6.7); Neutrophils Percent Auto 74.8 % (45.5-73.1); Platelet Count Result 200 k/mm3 (150-375); Red Cell Distribution Width 14.1 % (11.5-14.5); White Blood Count 10.1 K/mm3 (4.5-10.0)
[2024-06-06 12:35] VITALS: BP 129/79; PULSE 91
[2024-06-06 12:39] LABS: Add Urine Microscopic? YES; Appearance Urine Cloudy (Clear); Bacteria Urine 1+ /hpf; Bilirubin Urine Negative (Negative); Blood Urine Negative (Negative); Color Urine Yellow (Yellow); Glucose Urine UA Negative (Negative); Ketones Urine Negative (Negative); Leukocyte Esterase Ur 3+ LEU/UL (Negative); Need Manual Microscopic Reviewed; Nitrate Urine Negative (Negative); Non Pathogenic Casts 0-2; Protein Urine Negative (Negative); RBC Urine 0-2 /hpf (0-2); Specific Grav Ur 1.011 (1.001-1.035); Squamous Epithelial Cell Urine Moderate /hpf (Few); Urobilinogen Urine 0.2 mg/dL (<2.0); WBC Urine 21-50 /hpf (0-3)
[2024-06-06 12:40] LABS: Alanine Aminotransferase 14 U/L (6-35); Albumin Level 3.6 g/dL (3.5-5.1); Alkaline Phosphatase 153 U/L (38-126); Anion Gap 10 mmol/L (4-12); Aspartate Amino Transferase 17 U/L (14-36); Bilirubin,Total 0.5 mg/dL (0.2-1.3); Blood Urea Nitrogen 9 mg/dL (7-17); Calcium 8.8 mg/dL (8.4-10.2); Carbon Dioxide 20 mmol/L (22-30); Chloride 104 mmol/L (98-107); Estimated Glomerular Filt Rate > 60; Glucose 78 mg/dL (65-110); Sodium 134 mmol/L (137-145); Uric Acid 4.9 mg/dL (2.5-7.5)
[2024-06-06 12:46] VITALS: BP 122/69; PULSE 85
[2024-06-06 12:50] LABS: Creatinine Urine 84.4 mg/dL; Total Protein Urine Random 7 mg/dL; Ur Ttl Prot Creatinine Ratio 0.08 mg/mg (0-0.20)
--- NOTE | 2024-06-06 12:50 | PC.NURSE ---
Dr. María Ledezma informed of reactive NST, BP's, and lab results. OK to discharge to home. Pt is scheduled for induction on labor on 06/08/24 at 0500.
== END 2024-06-06 12:59 | disposition home or self-care (01) ==
LOC: ANHOBOP 11:15 → ANHOBPP 11:17
PROVIDERS: Visit Provider Obstetrics & Gynecology
DX: O13.9 Gestational [pregnancy-induced] hypertension without significant proteinuria, unspecified trimester (principal); Z3A.00 Weeks of gestation of pregnancy not specified
CPT/HCPCS: 36415; 59025; 80053; 81001; 82570; 84156; 84550; 85025; 99199

== ENCOUNTER 2024-06-08 04:53 | Inpatient (IN) | payer OTHER, SELFPAY ==
[2024-06-08] VITALS (91 sets, daily range): BP systolic 108–156; BP diastolic 57–103; PULSE 65–109; RESP 16–18; TEMP 36.4–37.3; O2SAT 97–100; BMI 35.9
--- OUTSIDE RECORDS SUMMARY | 2024-06-08 04:59 | XMS_ITS | Clinical Summary ---
Author Organization [facility] Address [address] [place] [address] Care Team Providers Care Shoe Worker Name Role Phone None, Provider MD Primary [...] 97 02/09/2024 2:36 PM CDT Temperature 36.4 C (97.5 F) 02/09/2024 2:36 PM CDT Respiratory Rate 16 02/09/2024 2:36 PM CDT [...] Standard) 2017 Hepatitis C 2019 COVID-19 Vaccine ( - 2023- season) 2024 Influenza Adult (#1) 2024 DTaP, [...] complete this topic Insurance ETHEL Care Teams Shoe Worker Relationship Specialty Start Date End Date None, Provider, PCP - General UNKNOWN PHYSICIAN SPECIALTY 03/27/22
--- OUTSIDE RECORDS SUMMARY | 2024-06-08 04:59 | XMS_ITS | Data Portability ---
Author Organization [facility] [place] Address [address] [address] [place] [address] Assessment No assessment recorded. Plan of Treatment Reminders Order Date Submit Date Provider Last Modified By Organization Details Last Modified Time Details Appointments None recorded. Lab None recorded. Referral None recorded. Procedures None recorded. Surgeries None recorded. Imaging US, pelvis, complete 2019 [facility], [address], [address], [place], [address], 1 05:01:46 US, pelvis, complete 2019 [facility], [facility] [address], [address], [place], [address], 1 05:01:05 US, pelvis 2019 [email or web address] [place], [address], [address], [place], [address], 0 09:10:24 US, transvagin al 2019 [facility], [facility] [address], [place], [address], 1 15:13:12 Medication Orders June FE 05/22 (28) 1 mg-20 mcg (21)/75 mg (7) tablet 2019 [id number], [address], [place], [place], [id number], 0 15:20:03 Patient TargetsNo targets recorded. Patient Instructions Encounter Date Encounter Id Patient Instructions Last Modified By Organization Details Last Modified Time 01/23/2020 [email or web address] Not available 14:33:35 02/12/2020 [id number] [email or web address] Not available 15:19:20 Reason for Referral None Reported. Results Created Date Observation Date Name Description Value Unit Range Abnormal Flag Note LastModifiedBy Organization Detail LastModifiedTime 06/20/19 21 06/20/2020 jewels SOTO md interpretati on Not Available [facility] [address], [place], [address], 02/12/2020 14:52:58 02/12/20 20 jewels SOTO observ ation record ed. [address], [facility], [place], [address], 02/13/2020 12:28:42 Result Notes None recorded. Problems Name Problem SNOMED Code Status Onset Date Resolution Date Notes Provider Name and Address Organization Details Recorded Time , childbirt h and puerperiu m finding Active 2018 Encounter for supervisi on of normal 1st ;Recorded Elsewhere : No Locati on: [facility] So urce: EHR Chron ic: N Practic e ID: [id number] Bill able Time: 11:45:00 AM Not Available [facility] 0 22:01:20 Uterine size for dates discrepan cy Active 2018 Uterine size-date discrepan cy, first trimester ;Recorded Elsewhere : No Locati on: [facility] So urce: EHR Chron ic: N Practic e ID: [id number] Bill able Time: 01:00:00 PM Not Available [facility] 0 22:01:20 Normal in multigrav jimena [id number] 4106 Active 2019 Encounter for suprvsn of normal , third trimester ;Recorded Elsewhere : No Locati on: [facility] So urce: EHR Chron ic: N Practic e ID: [id number] Bill able Time: 01:00:00 PM Not Available [facility] 0 22:01:21 screening Active 2018 Encounter for other specified screening ;Recorded Elsewhere : No Locati on: [facility] So urce: EHR Chron ic: N Practic e ID: [id number] Bill able Time: 10:30:00 AM Not Available [facility] 0 22:01:21 detection examinati on Active 2018 Encounter for test, result positive; Recorded Elsewhere : No Locati on: [facility] So urce: EHR Chron ic: N Practic e ID: [id number] Bill able Time: 03:30:00 PM Not Available [facility] 0 22:01:21 screening for malformat ion Active 2018 Encounter for screening for malformat ions;Larry rded Elsewhere : No Locati on: [facility] So urce: EHR Chron ic: N Practic e ID: [id number] Bill able Time: 01:15:00 PM Not Available [facility] 0 22:01:21 Gestation period, 9 weeks 421594 Active 2018 9 weeks gestation of ;Recorded Elsewhere : No Locati on: [facility] So urce: EHR Chron ic: N Practic e ID: [id number] Bill able Time: 01:00:00 PM Not Available [facility] 0 22:01:[address] Concept Active 2018 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 Procedures Surgical History None recorded. Imaging Results Imaging Date Name Status LastModified by Organiz ation Details LastModified Time 02/12/2020 US, pelvis completed [address], [place], [address], 02/13/2020 12:28:42 Procedure Notes None recorded. Medical Equipment None Reported. Medications Name Sig Start Date Stop Date Status Note LastModified by Organization Details LastModified Time multivita min tablet 03/28 completed Prescribe d Elsewhere : Yes Locat ion: [facility] Mo dify By: [email or web address] Encounter DateTime: 9 11:45:00 AM Not Available Not Available Not Available cyclobenz aprine 10 mg tablet active Not Available Not Available No t Available [place] Multivita min chewable tablet active Prescribe d Elsewhere : Yes Locat ion: [facility] Mo dify By: [email or web address] Encounter DateTime: 9 11:45:00 AM Not Available Not Available Not Available amoxicill in 875 mg tablet TAKE 1 TABLET BY MOUTH EVERY 12 HOURS FOR 10 DAYS active Not Available Not Available No t Available prednison e 50 mg tablet TAKE 1 TABLET BY MOUTH DAILY FOR 5 DAYS active Not Available Not Available No t Available ibuprofen 600 mg tablet active Not Available Not Available Not Available active Prescribe d Elsewhere : Yes Locat ion: [facility] Mo dify By: [email or web address] En counter DateTime: 0 09:00:00 AM Not Available Not Available Not Available Aurovela Fe 1-20 (28) 1 mg-20 mcg (21)/75 mg (7) tablet TK 1 T PO QD active Not Available Not Available No t Available Vitals Date Recorded Body height Provider Name an d Address Organization Details Last Updated DateTime 01/23/[address] [facility] 01/23/2020 13:58:06 Date Recorded Body height Body mass index (BMI) Body mass index (BMI) Percentile per age and sex Body weight Systolic blood pressure Diastolic blood pressure Provider Name and Address Organization Details Last Updated DateTime 0 161.29 cm 31.4 kg/m2 95 % 01757.6 3 g 132 mm[Hg] 86 mm[Hg] Nitza Johnston [facility] 0 14:58:39 Social History Question Answer Notes LastModified by Organizat ion Details LastModified Time Tobacco Smoking Status Never Smoker Shannon Murillo kelle, [facility] 01/23/2020 14:09:08 What Is Your Level Of Alcohol Consumption? None Information not available 01/23/2020 Sex: Unknown Functional Status Question Answer Note LastModified by Organization D etails LastModified Time What is your exercise level? None Information not available 01/23/2020 Mental Status None recorded. Family History Relationship Description Onset Age of this Age Resolved Age Notes LastModified by Organization Details LastModified Time Father Hypertensive disorder [email or web address] Not available 2019 14:09:00 Notes:Father: Hypertension Medical History Condition Response Allergies (Food, seasonal, environmental ) N Other N Breast Cancer N Drug/Latex Allergies/Reactions N Blood Transfusion N Dermatologic Disorders N Lung Disease N Defects or Inherited Disease N Breast Problem N Gestational Diabetes N Hematologic disorders N Anesthesia Complications N History of STI N Deep Vein Thrombosis N Polycystic ovary syndrome N Anxiety Disorder N Autoimmune disease N Arthritis N Infertility N Polyps N Acid Reflux (GERD) N History of abnormal pap N Cancer N Stroke N Varicosities N Neurologic/Epilepsy N Endometriosis N High Cholesterol N Headaches N Fibromyalgia N Kidney Disease N Heart Problems N Kidney or Bladder Problems N Thyroid Problems N GI Problems N Eating Disorder N Anemia N Art (IVF or FET) N Psychiatric Illness N Ovarian Cancer N Diabetes N Pulmonary (TB, Asthma) N Hepatitis/Liver Disease N No Past Medical History N Eczema N Urinary Tract Infection N Abuse/Domestic Violence N Asthma N Trauma/Violence N Depression/ depression N Heart Disease N Pre-Eclampsia N Hypertension N Osteoporosis N Thrombophilias N Gynecological History Statement/Question Response Date of DEXA bone scan Date of Last Pap Smear Current Control Method None Date of Last Mammogram Date of LMP 12/02/2019 Obstetrics History GPAL:G 1 P 1 0 0 0 Type Value Full Term 1 Total 1 Past Encounters Encounter ID Performer Location Encounter Start Date Encounter Closed Date Diagnosis/Indication Diagnosis SNOMED-CT Code Diagnosis ICD10 Code Diagnosis Note Radha Ugalde [facility] [address],[place] [address] 01/23/2020 13:51:05 01/23/2020 14:54:10 Pain in pelvis 57537762 R10.2 We agreed on TVUS w/ US to start. Will schedule. Patient is to contact office or go to nearest ED/Urgent care if fever >/= 100.1, pain, excessive bleeding, unusual drainage or swelling in area of concern; or experienci ng worsening sx's or new onset of concerning sx's. Understand ing verbalized . All questions answered to patient satisfacti on. Time spent in visit is a total of 15 mins with at least 50% of visit consisting of counseling and review of plan of care. [id number] Patt Mathew [place] [address],[place] [address] 02/12/2020 14:17:18 02/13/2020 09:10:18 Pain in pelvis 41074642 R10.2 [id number] Radha Ugalde [facility] [address],[place] [address] 02/12/2020 14:17:35 02/13/2020 09:10:40 Pain in pelvis 41131838 R10.2 We reviewed TVUS that showed 3.2 x 2.9 x 2.4cm complex focus lt ovary appearance of hemorrhagi c cyst. Sm amt free fluid cul de sac. She is starting to feel better but still with some random cramping; this has had no effect on her cycles. We discussed monitoring & r/p TVUS in 6-8wks along with 2-3mos OCP. If significan t sx's we can schedule md consult. She opts to monitor & take OCP for now. Patient is to contact office or go to nearest ED/Urgent care if fever >/= 100.1, pain, excessive bleeding, unusual drainage or swelling in area of concern; or experienci ng worsening sx's or new onset of concerning sx's. Understand ing verbalized . All questions answered to patient satisfacti on. Understand s to call sooner if any changes in status that are negative. Will call if any changes to POC after MD reviews imaging. Time spent in visit is a total of 15 mins with at least 50% of visit consisting of counseling and review of plan of care. Health Concerns Section Related Observation LastModified by Organization Detai ls LastModified Time None Recorded Concern Status LastModified by Organization Details LastModified Time None Recorded Advance Directives Directive None Recorded Payers Encounter Date Sequence Insurance Name Policy Number Policy Ulrich Covered Member ID Ulrich Member ID Guarantor Name 01/23/2020 1 [facility] (MEDICAID HM) [id number] Michelle Anabelle McNatt [id number] Michelle McNatt 02/12/2020 1 [facility] (MEDICAID HMO) [id number] Michelle Anabelle McNatt [id number] Michelle McNatt 02/12/2020 1 [facility] (MEDICAID HMO) [id number] Michelle Anabelle McNatt [id number] Michelle McNatt Notes Date Note Type Note Provider Name and Address Organization Details Recorded Time 01/23/2020 text/html Cramping shooting pain since baby was born in 07/2019. Random. Lasting only for a few minutes. Unable to associate this pain with activity, menses, ovulation. Condoms for BC but hast not been recently SA. Also feels having issues with hard stools/constipat ion. Neg AUB. Having regular cycles. Neg SA since baby was born. Neg urinary sx's. Neg vaginal d/c +Constipation/hartman rd stools. Radha Ugalde P[facility]- [address], [place], [address], [facility] 01/23/2020 14:38:30 02/12/2020 text/html Here for TVUS Follow up for random pelvic cramping/pain. Doing better but not fully resolved. Radha Ugalde PIA- [address], [place], [address], [facility] 02/12/2020 15:37:36 OBGyn Episode Ob Episode Information Episode Created Date Number of Fetuses Patient Bloodtype Patient rh Status Prepregnancy Weight lbs Domestic Partner Domestic Partner Phone Father Name Abrasive Mixer Helper Status 01/23/20 20 1 CLOSED Fetus Data First Name Last Name Admitted to NICU Weight (g) Sex Living Outcome Pediatric Complications Fetus ID Race Codes Race Delivery Type Full Term [id number] Vaginal Delivery Garrett Calculation Initial Garrett Date Initial Exam Date Initial Exam Provider Initial Ultrasound Date Last Menstrual Period Date Ultra Sound Weeks Gestation 0 Eighteen To Twenty Week Garrett Update Ultra Sound Date Fundal Height At Umbil Quickening Date Ultra Sound Latest Weeks Gestation Final Garrett Confirmed By Final Garrett Confirmed Date Final Garrett Date Ultra Sound Latest Days Gestation 0 0 Menstrual History Last Menstrual Date Menses Monthly On Bcp Conception Prior Menses Frequency Hcg Plus Date Menarche Onset Age Delivery Information Delivery Date Delivery Type Labor Anesthesia Weeks Gestation Incision Type Labor Labor Length Hrs Delivered By Post Complications Tubal Sterilization Discharge Date Comments 0 Discharge Information Feeding Method Contraceptive Method Maternal HG B and HCT Levels
--- OUTSIDE RECORDS SUMMARY | 2024-06-08 04:59 | XMS_ITS | Referral Summary ---
Author Organization [facility] Address [address] [place] [address] Care Team Providers Care Nurse Healthcare Manager Name Role Phone Unknown, Notinfile Primary Care Provider Unavail able Allergies No known active allergies Medications meclizine (ANTIVERT) 25 mg tablet Take 1 tablet (25 mg total) by mouth 3 (three) times a day as needed for dizziness 30 tablet Active Social History Tobacco Use Types Packs/Day Years Used Date Smoking Tobacco: Never Smokeless Tobacco: Never Tobacco Cessation:Counseling Given: Not Answered Alcohol Use Standard Drinks/Week Comments Never 0 (1 standard drink = 0.6 oz pur e alcohol) Personal Safety Answer Date Recorded Have you ever been in or are you currently in a harmful physical or emotional relationship or is someone making you feel afraid or unsafe? 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 Gender Identity Not on file Sexual Orientation Not on file Last Filed Vital Signs Vital Sign Reading Time Taken Comments Blood Pressure 118/67 02/09/2024 1:00 AM CDT Pulse 87 02/09/2024 1:00 AM CDT Temperature 37.1 C (98.7 F) 02/08/2024 10:41 PM CDT Respiratory Rate 20 02/08/2024 10:41 PM CDT Oxygen Saturation 100% 02/09/2024 1:00 AM CDT Inhaled Oxygen Concentration - - Weight 86.3 kg (190 lb 4.1 oz) 02/08/2024 10:41 PM CDT Height 160 cm (5' 3 ) 02/08/2024 10:41 PM CDT Body Mass Index 33.7 02/08/2024 10:41 PM CDT Plan of Treatment Not on file Insurance [facility] Care Teams Nurse Healthcare Manager Relationship Specialty Start Date End Date Unknown, Notinfile PCP - General 02/09/24
--- OUTSIDE RECORDS SUMMARY | 2024-06-08 04:59 | XMS_ITS | Data Portability ---
Author Organization [facility] , [facility] Address [address] [place] [address] Assessment No assessment recorded. Plan of Treatment Reminders Order Date Submit Date Provider Last Modified By Organization Details Last Modified Time Details Appointments None recorded. Lab afp (alpha-feto protein) panel, maternal screen, serum - na 2023 [facility], [address] [place], [address], 4 16:48:08 glucose tolerance test, post-50G, 1-hour 2023 024 [facility], [address] [place], [address], 4 11:50:52 CBC w/ auto diff 2023 024 [facility], [address] [place], [address], 4 12:27:33 obstetric screen, serum or blood 2023 024 [facility], [address] [place], [address], 4 13:24:14 Referral physical therapist referral [address] [facility] [place], [address] [facility], [place], [address], 4 16:20:27 Procedures None recorded. Surgeries None recorded. Imaging US, obstetric, maternal evaluation + anatomy 2023 024 [facility] Not available 07:21:00 Medication Orders None recorded. Patient TargetsNo targets recorded. Patient Instructions Encounter Date Encounter Id Patient Instructions Last Modified By Organization Details Last Modified Time 03/22/2024 [id number] learning about screening for gestational diabetes [facility] Not available 03/22/2024 10:32:37 Reason for Referral Physical Therapist Referral for Vertigo Referring Physician: Kaylan Randhawa, PRINT OPERATOR, Encounter Date: 02/23/2024 Results Created Date Observation Date Name Description Value Unit Range Abnormal Flag Note LastModifiedBy Organization Detail LastModifiedTime 12/06/19 24 12/06/2023 [UNIT Y] ANEUP LOIDY NIPT fraction 8.7% normal Not Available [facility] [address] [place] [address], [address], 12/06/2023 17:46:34 12/06/19 24 12/06/2023 [UNIT Y] ANEUP LOIDY NIPT Rh(D) nipt RhD DETECT ED normal Not Available [facility] [place], [address], 12/06/2023 17:46:34 12/06/19 24 12/06/2023 [UNIT Y] ANEUP LOIDY NIPT sex chromosome aneuploidy NOT DETECT ED normal Not Available [facility] [place], [address], 12/06/2023 17:46:34 12/06/19 24 12/06/2023 [UNIT Y] ANEUP LOIDY NIPT monosomy X LOW RISK <1 in 10,000 normal Not Available [facility] [place], [address], 12/06/2023 17:46:34 12/06/19 24 12/06/2023 [UNIT Y] ANEUP LOIDY NIPT trisomy 13 LOW RISK <1 in 10,000 normal Not Available [facility], [place], [address], 12/06/2023 17:46:34 12/06/19 24 12/06/2023 [UNIT Y] ANEUP LOIDY NIPT trisomy 18 LOW RISK <1 in 10,000 normal Not Available [facility] [address] [facility], [place], [address], 12/06/2023 17:46:34 12/06/19 24 12/06/2023 [UNIT Y] ANEUP LOIDY NIPT trisomy 21 LOW RISK <1 in 10,000 normal Not Available [facility] [address] [facility], [place], [address], 12/06/2023 17:46:34 12/06/19 24 12/06/2023 [UNIT Y] ANEUP LOIDY NIPT sex MALE normal Not Available [facility] [address] [facility], [place], [address], 12/06/2023 17:46:34 12/06/19 24 12/06/2023 [UNIT Y] ANEUP LOIDY NIPT gestation SINGLE TON normal Not Available [facility] [address] [facility], [place], [address], 12/06/2023 17:46:34 12/06/19 24 12/06/2023 [UNIT Y] ANEUP LOIDY NIPT for detailed report, see pdf See PDF normal Not Available [facility] [address] [facility], [place], [address], 12/06/2023 17:46:34 12/07/19 24 12/07/2023 [UNIT Y] BELKYS Ware sickle cell disease/beta -thalassemia /hemoglobino pathies carrier screen NEGATI VE normal Not Available [facility] [address] [facility], [place], [address], 12/07/2023 03:29:19 12/07/19 24 12/07/2023 [UNIT Y] BELKYS Ware alpha-thalas semia carrier screen NEGATI VE normal Not Available [facility] [address], [place], [address], 12/07/2023 03:29:19 12/07/19 24 12/07/2023 [UNIT Y] BELKYS Ware cystic fibrosis carrier screen NEGATI VE normal Not Available [facility] [address], [place], [address], 12/07/2023 03:29:19 12/07/19 24 12/07/2023 [UNIT Y] BELKYS Ware spinal muscular atrophy carrier screen NEGATI VE 2 SMN1 copies , SNP not presen t normal Not Available [facility] [address], [place], [address], 12/07/2023 03:29:19 12/07/19 24 12/07/2023 [UNIT Y] BELKYS Ware for detailed report, see pdf See PDF normal Not Available [facility] [address], [place], [address], 12/07/2023 03:29:19 11/29/19 24 11/30/2023 CBC (INCL UDES DIFF/ PLT) WBC 7.9 thous and/u L 4.0 - 9.8 normal Not Available [facility] [address] [place], [address], 12/01/2023 09:05:49 11/29/19 24 11/30/2023 CBC (INCL UDES DIFF/ PLT) RBC 4.4 ginger on/uL 3.9 - 4.9 normal Not Available [facility] [employer] [facility] [address] [place], [address], 12/01/2023 09:05:49 11/29/19 24 11/30/2023 CBC (INCL UDES DIFF/ PLT) hemoglobin 11.4 g/dL 11.8 - 14.8 low Not [place], [address], 12/01/2023 09:05:49 11/29/19 24 11/30/2023 CBC (INCL UDES DIFF/ PLT) hematocrit 34.2 % 35.5 - 44.0 low Not Available [facility] [address] [place] [address], [address], 12/01/2023 09:05:49 11/29/19 24 11/30/2023 CBC (INCL UDES DIFF/ PLT) MCV 78.4 fL 82.0 - 99.0 low Not Available [facility] [address], [address], 12/01/2023 09:05:49 11/29/19 24 11/30/2023 CBC (INCL UDES DIFF/ PLT) MCH 26.1 pg 27.2 - 32.6 low Not Available [address], [address], 12/01/2023 09:05:49 11/29/19 24 11/30/2023 CBC (INCL UDES DIFF/ PLT) MCHC 33.3 g/dL 31.5 - 35.5 normal Not Available [facility] [address], [address], 12/01/2023 09:05:49 11/29/19 24 11/30/2023 CBC (INCL UDES DIFF/ PLT) RDW-CV 14.1 % 11.5 - 14.5 normal Not Available [facility], [address], 12/01/2023 09:05:49 11/29/19 24 11/30/2023 CBC (INCL UDES DIFF/ PLT) platelet 229 thous and/u L 140 - 350 normal Not Available [facility] [employer] [address] [place] [address], [address], 12/01/2023 09:05:49 11/29/19 24 11/30/2023 CBC (INCL UDES DIFF/ PLT) MPV 12.2 fL 9.3 - 12.4 normal Not Available [facility] [employer] [address] [place] [address], [address], 12/01/2023 09:05:49 11/29/19 24 11/30/2023 CBC (INCL UDES DIFF/ PLT) absolute neutrophil 5.81 thous and/u L 1.90 - 7.00 normal Not Available [address], [address], 12/01/2023 09:05:49 11/29/19 24 11/30/2023 CBC (INCL UDES DIFF/ PLT) absolute lymphocyte 1.68 thous and/u L 0.70 - 4.50 normal Not Available [address], [address], 12/01/2023 09:05:49 11/29/19 24 11/30/2023 CBC (INCL UDES DIFF/ PLT) absolute monocyte 0.35 thous and/u L 0.10 - 1.30 normal Not Available [address], [address], 12/01/2023 09:05:49 11/29/19 24 11/30/2023 CBC (INCL UDES DIFF/ PLT) absolute eosinophil 0.04 thous and/u L <0.70 normal Not Available [address], [address], 12/01/2023 09:05:49 11/29/19 24 11/30/2023 CBC (INCL UDES DIFF/ PLT) absolute basophil 0.02 thous and/u L <0.20 normal Not Available [address], [address], 12/01/2023 09:05:49 11/29/19 24 11/30/2023 CBC (INCL UDES DIFF/ PLT) absolute immature granulocyte 0.01 thous and/u L <0.03 normal Not Available [address], [address], 12/01/2023 09:05:49 11/29/19 24 11/30/2023 CT/NG chlamydia trachomatis CT neg negati ve normal This repor t is inten ded for us in clini timmy monit oring and manag ement of patie nts. It is not inten ded for use in medic al-le gal appli catio n. Not Available [facility] [address] [place], [address], 12/01/2023 09:05:58 11/29/19 24 11/30/2023 CT/NG neisseria gonorrhoeae GC neg negati ve normal This repor t is inten ded for us in clini timmy monit oring and manag ement of patie nts. It is not inten ded for use in medic al-le gal appli catio n. Not Available [facility] [address] [place], [address], 12/01/2023 09:05:58 11/29/19 24 12/01/2023 HEMOG LOBIN [...] absen ce of diabe marychuy Not Available [facility] [address] [place], [address], 12/01/2023 12:16:53 11/29/19 24 12/01/2023 DRUG ABUSE PANEL 7 W/CON FIRM amphetamines Negati ve negati ve normal Not Available [facility] [address] [place], [address], 12/01/2023 12:48:41 11/29/19 24 12/01/2023 DRUG ABUSE PANEL 7 W/CON FIRM barbiturates Negati ve negati ve normal Not Available [facility] [address] [place], [address], 12/01/2023 12:48:41 11/29/19 24 12/01/2023 DRUG ABUSE PANEL 7 W/CON FIRM benzodiazepi nani Negati ve negati ve normal Not Available [facility] [address] [place], [address], 12/01/2023 12:48:41 11/29/19 24 12/01/2023 DRUG ABUSE PANEL 7 W/CON FIRM cocaine metabolites Negati ve negati ve normal Not Available [facility] [address] [place], [address], 12/01/2023 12:48:41 11/29/19 24 12/01/2023 DRUG ABUSE PANEL 7 W/CON FIRM cannabinoids Negati ve negati ve normal Not Available [facility] [address] [place] [address], [address], 12/01/2023 12:48:41 11/29/19 24 12/01/2023 DRUG ABUSE PANEL 7 W/CON FIRM methadone Negati ve negati ve normal Not Available [facility] [address] [place] [address], [address], 12/01/2023 12:48:41 11/29/19 24 12/01/2023 DRUG ABUSE PANEL 7 W/CON FIRM opiates Negati ve negati ve normal Not Available [facility] [address] [place] [address], [address], 12/01/2023 12:48:41 11/29/19 24 12/01/2023 DRUG ABUSE PANEL 7 W/CON FIRM creatinine, urine 183 mg/dL 20 - 275 normal Not Available [facility] [address] [place] [address], [address], 12/01/2023 12:48:41 11/29/19 24 12/01/2023 OB PANEL - STD BLOOD WORK hep BS Ag Non-Re active non-re active normal Not Available [facility] [address] [place] [address], [address], 12/01/2023 14:17:06 11/29/19 24 12/01/2023 OB PANEL - STD BLOOD WORK hep C Ab Non-Re active non-re active normal Not Available [facility] [address] [place] [address], [address], 12/01/2023 14:17:06 11/29/19 24 12/01/2023 OB PANEL - STD BLOOD WORK HIV 1/2 Ag/Ab Non-Re active non-re active normal Not Available [address], [address], 12/01/2023 14:17:06 11/29/19 24 12/01/2023 OB PANEL - STD BLOOD WORK syphilis Ab Non-Re active non-re active normal Not Available [address], [address], 12/01/2023 14:17:06 11/29/19 24 12/01/2023 OB PANEL [...] the Rubel la virus . Not Available [address], [address], 12/01/2023 14:17:06 11/29/19 24 12/02/2023 THINP REP TIS PAP clinical information: normal None given Not Available [facility] [address] [place], [address], 12/02/2023 16:22:52 11/29/19 24 12/02/2023 THINP REP TIS PAP LMP: normal None given Not Available [facility] [address] [place], [address], 12/02/2023 16:22:52 11/29/19 24 12/02/2023 THINP REP TIS PAP prev. Pap: normal None given Not Available [address], [address], 12/02/2023 16:22:52 11/29/19 24 12/02/2023 THINP REP TIS PAP prev. BX: normal None given Not Available [address], [address], 12/02/2023 16:22:52 11/29/19 24 12/02/2023 THINP REP TIS PAP source: normal Cervi x Not Available [address], [address], 12/02/2023 16:22:52 11/29/19 24 12/02/2023 THINP REP TIS PAP statement of adequacy: normal Satis facto ry for evalu ation . Endoc ervic al/tr ansfo rmati on zone compo nent prese nt. Not Available [address], [address], 12/02/2023 16:22:52 11/29/19 24 12/02/2023 THINP REP TIS PAP general categorizati on: abnormal Cytol ogy Resul ts: Epith elial Cell Abnor malit y Not Available [address], [address], 12/02/2023 16:22:52 11/29/19 24 12/02/2023 THINP REP TIS PAP interpretati on/result: abnormal Atypi timmy Squam ous Cells of Undet ermin ed Signi fican ce (ASC- US) Not Available [address], [address], 12/02/2023 16:22:52 11/29/19 24 12/02/2023 THINP REP TIS PAP comment: normal This Pap test has been evalu ated with compu ter imelda susana techn ology . Sugge st clini timmy corre latio n and follo w-up as clini annie appro priat e Not Available [address] [address] [place], [address], 12/02/2023 16:22:52 11/29/19 24 12/02/2023 THINP REP TIS PAP cytotechnolo gist: normal BES, CT( CP) CT scree whit locat ion: [address] [address] [place] [address] Not Available [address] [address] [place], [address], 12/02/2023 16:22:52 11/29/19 24 12/02/2023 THINP REP TIS PAP pathologist: normal Eda seth M.D., Board Certi fied in Anato josiah Patho logy and Cytop athol ogy. Phone : [phone] (elec troni c signa ture) Not Available [address] [address] [place], [address], 12/02/2023 16:22:52 11/29/19 24 12/02/2023 THINP REP [...] clini timmy infor matio n. Not Available [address] [address] [place], [address], 12/02/2023 16:22:52 11/29/19 24 12/06/2023 HPV HIGH [...] l cervi timmy cytol ogy. Not Available [facility] [address] [place], [address], 12/06/2023 13:06:52 11/29/19 24 12/06/2023 VARIC ANGELA [...] Immun ity Scree n, ACIF. Not Available [facility] [address] [place], [address], 12/06/2023 15:49:51 11/29/19 24 12/06/2023 HEMOG LOBIN OPATH Y EVALU ATION red blood cell count 4.39 ginger on/uL 3.80-5 .10 Not Available [address], [address], 12/06/2023 15:49:51 11/29/19 24 12/06/2023 HEMOG LOBIN OPATH Y EVALU ATION hemoglobin 11.4 g/dL 11.7-1 5.5 low Not Available [address], [address], 12/06/2023 15:49:51 11/29/1912/06/2023 HEMOG LOBIN OPATH Y EVALU ATION hematocrit 37.8 % 35.0-4 5.0 Not Available [address], [address], 12/06/2023 15:49:51 11/29/19 24 12/06/2023 HEMOG LOBIN OPATH Y EVALU ATION MCV 86.1 fL 80.0-1 00.0 Not Available [address], [address], 12/06/2023 15:49:51 11/29/19 24 12/06/2023 HEMOG LOBIN OPATH Y EVALU ATION MCH 26.0 pg 27.0-3 3.0 low Not Available [address], [address], 12/06/2023 15:49:51 11/29/19 24 12/06/2023 HEMOG LOBIN OPATH Y EVALU ATION RDW 14.5 % 11.0-1 5.0 Not Available [address], [address], 12/06/2023 15:49:51 11/29/19 24 12/06/2023 HEMOG LOBIN OPATH Y EVALU ATION hemoglobin A 97.1 % >96.0 Not Available [facility] [place] [address] [place], [address], 12/06/2023 15:49:51 11/29/19 24 12/06/2023 HEMOG LOBIN OPATH Y EVALU ATION hemoglobin F <1.0 % <2.0 Not Available [facility] [address] [address] [place], [address], 12/06/2023 15:49:51 11/29/19 24 12/06/2023 HEMOG LOBIN OPATH Y EVALU ATION hemoglobin A2 (quant) 2.9 % 2.0-3. 2 Not Available [facility] [address] [address] [place], [address], 12/06/2023 15:49:51 11/29/19 24 12/06/2023 HEMOG LOBIN OPATH Y EVALU ATION interpretati on Eda l pheno type. Eda l hemog lobin distr ibuti on, no HgS, HgC or other abnor mal hemog lobin obser debi. Not Available [facility] [address] [address] [place], [address], 12/06/2023 15:49:51 11/29/1912/06/2023 MEASL ES AB (IGG) [...] l purpo ses only. ) Not Available [address] [address] [place], [address], 12/06/2023 15:49:52 11/29/19 24 12/06/2023 ANTIB CHAITANYA [...] alloi mmuni zed pregn mónica. Not Available [address], [address], 12/06/2023 15:49:52 11/29/19 24 12/06/2023 ABO GROUP AND RH TYPE ABO group O Not Available [address] [address] [place], [address], 12/06/2023 15:49:53 11/29/19 24 12/06/2023 ABO GROUP AND RH TYPE Rh type RH(D) POSITI VE For addit ional infor brenda valencia e refer to http: //[facility] gabriele Rodriguez stDia gnost ics.c om/fa q/FAQ 111 (This link is being provi ded for infor nicci yepez/ educluís charlene l purpo ses only. ) Not Available [address] [address] [place], [address], 12/06/2023 15:49:53 11/29/19 24 12/06/2023 CULTU RE, URINE , ROUTI NE culture, urine, routine SEE NOTE CULTU RE, URINE , ROUTI NE Micro Numbe r: [id number] Test Statu s: Final Speci men Sourc e: Urine Speci men Quali ty: Adequ ate Resul t: No Growt h Not Available [facility] [address] [address] [place], [address], 12/06/2023 15:49:54 12/30/19 24 01/04/2024 MATER NAL SERUM AFP interpretati on: Scree n negat raheem for open NTD. Not Available [facility] [address] [address] [place], [address], 01/04/2024 16:48:08 12/30/19 24 01/04/2024 MATER NAL SERUM AFP risk for ontd <1 IN 5000 Not Available [facility] [address] [address] [place], [address], 01/04/2024 16:48:08 12/30/19 24 01/04/2024 MATER NAL SERUM AFP AFP, serum 26.6 NG/mL Not Available [facility] [address], [address], 01/04/2024 16:48:08 12/30/19 24 01/04/2024 MATER NAL SERUM AFP AFP MOM 0.90 Not Available [facility] [address], [address], 01/04/2024 16:48:08 12/30/19 24 01/04/2024 MATER NAL [...] eda l baby and that 2-3% of the [facility] rns have some type of physi timmy or menta l defec t, many of which are undet ectab le throu gh any known prena ulises diagn ostic techn ique. Not Available [facility] [address] [address] [place], [address], 01/04/2024 16:48:08 12/30/19 24 01/04/2024 MATER NAL [...] s minesh ic couns elor or call [phone]( [phone]). Inter preti ve Cutof fs Scree n [...] infor brenda valencia e refer to http: //[facility] gabriele ware.que stdia gnost ics.c om/fa q/FAQ 74v1 (This link is being provi ded for infor nicci yepez/ educa charlene l purpo ses only. ) Not Available [facility] [address] [address] [place], [address], 01/04/2024 16:48:08 12/30/19 24 01/04/2024 MATER NAL SERUM AFP calc'd gestational age 16.0 weeks Not Available [facility] [address] [place], [address], 01/04/2024 16:48:08 12/30/19 24 01/04/2024 MATER NAL SERUM AFP maternal weight 182 lbs Not Available [facility] [address] [place], [address], 01/04/2024 16:48:08 12/30/19 24 01/04/2024 MATER NAL SERUM AFP est'd date of delivery 2024 Not Available [address], [address], 01/04/2024 16:48:08 12/30/19 24 01/04/2024 MATER NAL SERUM AFP tammie determined by ULTRAS OUND Not Available [address], [address], 01/04/2024 16:48:08 12/30/19 24 01/04/2024 MATER NAL SERUM AFP mother's ethnic origin CAUCAS RENETTA Not Available [address] [place], [address], 01/04/2024 16:48:08 12/30/19 24 01/04/2024 MATER NAL SERUM AFP number of fetuses 1 Not Available [address], [address], 01/04/2024 16:48:08 12/30/19 24 01/04/2024 MATER NAL SERUM AFP insulin depend diabetic NO Not Available [address] [place], [address], 01/04/2024 16:48:08 12/30/19 24 01/04/2024 MATER NAL SERUM AFP repeat specimen NO Not Available [address], [address], 01/04/2024 16:48:08 12/30/19 24 01/04/2024 MATER NAL SERUM AFP Hx of neural tube defects NO Not Available [address] [address] [place], [address], 01/04/2024 16:48:08 12/30/19 24 01/04/2024 MATER NAL SERUM AFP prev down synd NO Not Available [facility] [address] [place], [address], 01/04/2024 16:48:08 12/30/19 24 01/04/2024 MATER NAL SERUM AFP donor egg NO Not Available [facility] [address] [place], [address], 01/04/2024 16:48:08 12/30/19 24 01/04/2024 MATER NAL SERUM AFP donor age: egg retrieval NOT GIVEN Not Available [facility] [address] [place], [address], 01/04/2024 16:48:08 03/22/20 24 03/23/2024 (50G) 1HR - GLUCO SE CHELLE ANCE TEST, GESTA CHARLENE L SCREE N glucose (50g) 1 hour 94 mg/dL <135 normal Not Available [facility] [address] [place], [address], 03/23/2024 11:50:52 03/22/20 24 03/23/2024 CBC (INCL UDES DIFF/ PLT) WBC 10.5 thous and/u L 4.0 - 9.8 high Not Available [facility] [address] [address] [place], [address], 03/23/2024 12:27:33 03/22/20 24 03/23/2024 CBC (INCL UDES DIFF/ PLT) RBC 4.3 ginger on/uL 3.9 - 4.9 normal Not Available [facility] [address] [place], [address], 03/23/2024 12:27:33 03/22/20 24 03/23/2024 CBC (INCL UDES DIFF/ PLT) hemoglobin 11.3 g/dL 11.8 - 14.8 low Not Available [facility] [address] [place], [address], 03/23/2024 12:27:33 03/22/20 24 03/23/2024 CBC (INCL UDES DIFF/ PLT) hematocrit 35.0 % 35.5 - 44.0 low Not Available [facility] [address] [place], [address], 03/23/2024 12:27:33 03/22/20 24 03/23/2024 CBC (INCL UDES DIFF/ PLT) MCV 81.2 fL 82.0 - 99.0 low Not Available [address], [address], 03/23/2024 12:27:33 03/22/20 24 03/23/2024 CBC (INCL UDES DIFF/ PLT) MCH 26.2 pg 27.2 - 32.6 low Not Available [address], [address], 03/23/2024 12:27:33 03/22/20 24 03/23/2024 CBC (INCL UDES DIFF/ PLT) MCHC 32.3 g/dL 31.5 - 35.5 normal Not Available [address], [address], 03/23/2024 12:27:33 03/22/20 24 03/23/2024 CBC (INCL UDES DIFF/ PLT) RDW-CV 12.6 % 11.5 - 14.5 normal Not Available [address], [address], 03/23/2024 12:27:33 03/22/20 24 03/23/2024 CBC (INCL UDES DIFF/ PLT) platelet 242 thous and/u L 140 - 350 normal Not Available [address], [address], 03/23/2024 12:27:33 03/22/20 24 03/23/2024 CBC (INCL UDES DIFF/ PLT) MPV 12.3 fL 9.3 - 12.4 normal Not Available [address], [address], 03/23/2024 12:27:33 03/22/20 24 03/23/2024 CBC (INCL UDES DIFF/ PLT) absolute neutrophil 8.30 thous and/u L 1.90 - 7.00 high Not Available [address], [address], 03/23/2024 12:27:33 03/22/20 24 03/23/2024 CBC (INCL UDES DIFF/ PLT) absolute lymphocyte 1.77 thous and/u L 0.70 - 4.50 normal Not Available [address], [address], 03/23/2024 12:27:33 03/22/20 24 03/23/2024 CBC (INCL UDES DIFF/ PLT) absolute monocyte 0.30 thous and/u L 0.10 - 1.30 normal Not Available [address], [address], 03/23/2024 12:27:33 03/22/20 24 03/23/2024 CBC (INCL UDES DIFF/ PLT) absolute eosinophil 0.09 thous and/u L <0.70 normal Not Available [address], [address], 03/23/2024 12:27:33 03/22/20 24 03/23/2024 CBC (INCL UDES DIFF/ PLT) absolute basophil 0.04 thous and/u L <0.20 normal Not Available [address], [address], 03/23/2024 12:27:33 03/22/20 24 03/23/2024 CBC (INCL UDES DIFF/ PLT) absolute immature granulocyte 0.02 thous and/u L <0.03 normal Not Available [address], [address], 03/23/2024 12:27:33 03/22/20 24 03/23/2024 OB 28W (SYPH HIV 1/2 Ag/Ab Non-Re active non-re active normal Not Available [address], [address], 03/23/2024 13:24:14 03/22/20 24 03/23/2024 OB 28W (SYPH syphilis Ab Non-Re active non-re active normal Not Available [facility] [address] [place], [address], 03/23/2024 13:24:14 01/28/20 24 01/26/2024 US, obste tric, mater nal evalu ation + anato my No observ ation record ed. [facility], [place], [address], 01/30/2024 19:21:01 Result Notes None recorded. Problems Name Problem SNOMED Code Status Onset Date Resolution Date Notes Provider Name and Address Organization Details Recorded Time Body mass index 30+ - obesity 594429340 [facility] 024 [facility] [address] [place], [address], [facility] 4 11:06:37 [id number] Active 024 Monik Rubi null, [email or web address] [facility] 4 09:17:59 Problem Notes None recorded. Procedures Surgical History Date Name Laterality Status Provider Name and Address Organization Details Recorded Time 11/29/2023 Date of Last Pap Smear completed [facility] [place] [facility] [id number] [place], [address], [place] [facility] 11/29/2023 11:35:24 Imaging Results Imaging Date Name Status LastModified by Organiz ation Details LastModified Time 01/26/2024 US, obstetric, maternal evaluation + anatomy completed [facility] [address], [place], [address], 01/30/2024 19:21:01 Procedure Notes None recorded. Medical [...] Updated DateTime 4 160.02 cm 32.4 kg/m2 57059.6 9 g 97.8 [degF] 114 mm[Hg] 70 mm[Hg] Monik Dhillonell [employer] [facility] 4 12:32:02 Date Recorded Body height Body mass index (BMI) Body weight Body temperature Systolic blood pressure Diastolic blood pressure Provider Name and Address Organization Details Last Updated DateTime 4 160.02 cm 32.6 kg/m2 64372.9 9608 g 97 [degF] 120 mm[Hg] 60 mm[Hg] Dominik Quigley [facility] 4 13:17:23 Date Recorded Body height Body mass index (BMI) Body weight Systolic blood pressure Diastolic blood pressure Provider Name and Address Organization Details Last Updated DateTime 02/23/2024 160.02 cm 34 kg/m2 75401.01 6566 g 100 mm[Hg] 60 mm[Hg] Antonio Mclean [facility] 4 10:35:27 Date Recorded Body height Body mass index (BMI) Body weight Systolic blood pressure Diastolic blood pressure Provider Name and Address Organization Details Last Updated DateTime 03/22/2024 160.02 cm 34.7 kg/m2 70652.39 g 120 mm[Hg] 80 mm[Hg] [facility]anny[facility]ri [facility] 4 10:15:16 Date Recorded Body weight Body mass index (BMI) Body height Systolic blood pressure Diastolic blood pressure Provider Name and Address Organization Details Last Updated DateTime 04/05/2024 63178.28 926 g 35.1 kg/m2 160.02 cm 116 mm[Hg] 74 mm[Hg] Heidi Gray [facility] 10:13:47 Social History Question Answer Notes LastModified by Organizat ion Details LastModified Time Tobacco Smoking Status Never Smoker Skye nina DC [employer] 05/10/2023 15:22:12 What Is Your Level [...] Colon Cancer N Cytomegalovirus N Hyperthyroidism N Blood Transfusion N MRSA N Herpes (HSV) N Breast Cancer N Lung Cancer N Hypothyroidism N Depression N Incontinence N Panic Attacks N Neurological Disorder N Deep Vein Thrombosis N Anxiety Disorder N Autoimmune disease N Arthritis N Shingles N Tuberculosis/Positive PPD N Infertility N Polycystic Ovarian Syndrome N Cervical Cancer N Chlamydia N Hematuria N Stroke N Varicosities N Seasonal allergies N Crohn's Disease N Alzheimer's/Dementia N COPD/Emphysema N Endometriosis N HPV/Genital Warts N IBS (Irritable Bowel Syndrome) N History of Abnormal Pap N High Cholesterol N Liver Disease N Kidney Infection N Fibromyalgia N Ulcer N Kidney Disease N HIV N Gallbladder disease N Von Willebrand disease N Sickle Cell Disease/Trait N ADD/ADHD N Eating Disorder N Diabetes Mellitus (non-insulin dependent ) N Anemia N Ovarian Problems N Multiple Sclerosis N Gonorrhea N Frequent Urinary Tract infections N Osteopenia N Headaches/migraines N GERD (reflux) N Ovarian Cancer N Diabetes (insulin dependent) N Seizures/Epilepsy N Breast Problems N Fibroids N Asthma N Heart Attack N Endometrial Cancer N Lupus N Rubella N Blood Clotting Disorder N [...] SNOMED-CT Code Diagnosis ICD10 Code Diagnosis Note [id number] Shannon Matos CNM [facility] h [address] [place] [address] 05/10/2023 15:00:11 05/10/2023 17:00:28 Threatened miscarriage [id number] O20.0 Ultrasound does not reveal IUP. Will obtain serial quants. Strict precaution s reviewed. [id number] CHRITSIAN ALBERTS [facility]_[address] [address] 11/08/2023 10:29:30 11/08/2023 11:30:14 test positive 157115790 Z32.01 Pt presents today for a confirmati on of visit. has not been previously confirmed at another healthcare facility. Pt voiced that she is happy about this . TVUS today showed:IUP with Cardiac Activity. TAMMIE based on this US. TAMMIE: 06/15/2024G estational Age: 8w 4dFHT: 176 First trimester teaching provided.- --Foods and activities to avoid---We ight gain recommenda tions based on BMI---Safe meds---Amol entation to practice-- -Delivery locations- --[place] visit progressio n---Prenat al vitamins daily---To xoplasmosi s precaution s reviewed-- -[facility] Guide; What to expect on your maternity journey -- -S/S of SAB reviewed and when to seek care RTC for 1st OB, Labs, and Physical. --BMI: 32.7 Body mass index 30+ - obesity 044996258 Z68.32 BMI: 32.7 at Confirmati on Visit Nausea 429182264 R11.0 Pt reports ER gave her Zofran. They are dissolvabl e. Pt states she can't keep any pills down. Recommende d suppositor ies, pt declines. [id number] CHRISTIAN ALBERTS [address] [address] 11/29/2023 11:16:09 11/29/2023 12:05:00 Cancer cervix screening status 759324220 Z12.4 screening 2437 00617 Z36.89 Carrier de tection, molecular genetics 4654272 Z14.8 Gestation period, 11 weeks 45583702 Z3A.11 Guide: Given and reviewed. Toxoplasmo sis precaution s reviewed. Reviewed office visit schedule during . Reviewed Quickening and normal FHTs. Body mass index 30+ - obesity 704539646 Z68.32 BMI: 32.7 at Confirmati on Visit [id number] CHRISTIAN ALBERTS [address] [place] [address] 12/30/2023 12:25:56 12/31/2023 11:24:21 screening 933176111 Z36.9 Gestation period, 16 weeks 83328293 Z3A.16 care status 24 3809158 Z34.92 Pt is here for a CLINTON [...] meeting delivery providers after 28 week visit. [id number] Kaylan Lopez is, [address] [address] 01/26/2024 12:31:37 01/26/2024 14:35:48 care status 271031875 Z34.92 Normal 2319806 2 Z34.82 [id number] Kaylan chapa, [address] [address] 02/23/2024 09:55:21 02/23/2024 11:40:51 Normal 87914114 Z34.82 Gestation period, 23 weeks 57307538 Z3A.23 Vertigo [id number] R42 [id number] Kaylan Lopez is, [address] [address] 03/22/2024 10:03:40 03/22/2024 13:56:48 Gestation period, 27 weeks 64759454 Z3A.27 Normal 3802586 2 Z34.82 screening 2437 50404 Z36.89 [id number] SHAKA QUINONEZ NP [address] [address] 04/05/2024 10:04:19 04/05/2024 10:40:35 Gestation period, 29 weeks 78229586 Z3A.29 Normal 3537023 2 Z34.93 Pt is here for a [...] Ulrich Member ID Guarantor Name 12/30/2023 1 [facility] (MEDICAID HMO) [id number] 0003 Nesha Anabelle McNatt [id number] Nesha McNatt 01/26/2024 1 [facility] (MEDICAID HMO) [id number] 0003 Nesha Anabelle McNatt [id number] Nesha McNatt 02/23/2024 1 [facility] (MEDICAID HMO) [id number] 0003 Nesha Anabelle McNatt [id number] Nesha McNatt 03/22/2024 1 [facility] (MEDICAID HMO) [id number] 0003 Nesha Naabelle McNatt [id number] Nesha McNatt Notes Date Note Type Note [...] vomiting, headache or visual disturbances. JOSEPH VILLA, [place] [address] [facility] [place], [address], [facility] 12/30/2023 12:48:17 01/26/2024 text/html Patient is [...] the stomach since last night Kaylan Kingston, [place] [address] [place], [address], [facility] [employer] 01/26/2024 14:35:17 02/23/2024 text/html Patient is [...] vertigo makes her sleepy. Kaylan Thee, [address] [facility], [place], [address], [facility] [employer] [facility] 02/23/2024 11:23:42 03/22/2024 text/html Patient is [...] pain and stomach. Kaylan Kingston, PETR [address] [facility], [place], [address], [facility] [employer] 03/22/2024 10:33:21 04/05/2024 text/html Patient is here [...] Pt. went to ER on 03-31-24 at [facility] in [place] for contractions. Pt. is wanting to get her placenta checked. SHAKA QUINONEZ NP [address] [place], [address], [facility] [employer] 04/05/2024 10:35:55 OBGyn Episode Ob Episode Information Episode Created Date Number of Fetuses Patient Bloodtype Patient rh Status Prepregnancy Weight lbs Domestic Partner Domestic Partner Phone Father Name Boat Out[employer] Supervisor Status 04/05/20 24 1 CLOSED Fetus Data First Name Last Name Admitted to NICU Weight (g) Sex Living Outcome Pediatric Complications Fetus ID Race Codes Race Delivery Type , Spontane ous [id number] Tammie Calculation Initial Tammie Date Initial Exam [...] Domestic Partner Domestic Partner Phone Father Name Boat Out[employer] Supervisor Status 11/29/19 24 1 O Positive OPEN [...] in lbs Pre/Post Dialysis Refused With clothes 182.908429817212 BP Diastolic BP Location Tested BP Systolic [...] in lbs Pre/Post Dialysis Refused With clothes 182.582811500024 BP Diastolic BP Location Tested BP Systolic [...] in lbs Pre/Post Dialysis Refused With clothes 184.415997430561 BP Diastolic BP Location Tested BP Systolic [...] in lbs Pre/Post Dialysis Refused With clothes 191.554203561793 BP Diastolic BP Location Tested BP Systolic [...] in lbs Pre/Post Dialysis Refused With clothes 195.952437386211 BP Diastolic BP Location Tested BP Systolic BP Type 80 120 sitting Fetus Heart Rate Present Fetus Movement A Yes Comments Flowsheet Date 04/05/2024 Hernandez Score Blood Edema Fundus Height Fundus Units Glucose Ketones Leukocytes Nitrite Labor Signs Protein Cervic Dilation Cervic Effacement Cervic Station trace 28 cm none [place] neg Type Weight in lbs Pre/Post Dialysis Refused 198.129376218131 BP Diastolic BP Location Tested BP Systolic [...] Domestic Partner Domestic Partner Phone Father Name Boat Outfitting Supervisor Status 05/10/19 24 1 CLOSED Fetus Data First Name Last Name Admitted to NICU Weight (g) Sex Living Outcome Pediatric Complications Fetus ID Race Codes Race Delivery Type 3883.65 [id number] F Full Term [id number] Tammie Calculation Initial Tammie Date Initial Exam [...]
--- OUTSIDE RECORDS SUMMARY | 2024-06-08 04:59 | XMS_ITS | Clinical Summary ---
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 Gender Identity Not on file Sexual Orientation Not on file Obstetrics History Para Term AB IAB SAB Ectopic Multiple Livin g Live Births 1 Date Outcome GA Total Labor Labor/2nd/3rd Weight Sex Type Anes PTL [place] A1 A5 Name Clin Current Last Filed Vital Signs Vital Sign Reading [...] 02/08/2024 10:41 PM CDT Plan of Treatment Health Maintenance Due Date Last Done Comments Cervical Cancer Screening 2001 Depression Screening 2001 Hepatitis C Screening 2001 Meningococcal B Vaccine (1 of 2 - Patient Seeks Protection) 2017 Regular Well Visit/Exam 18-64 2019 Influenza Vaccine (#1) 2024 DTaP/Tdap/Td Vaccine (8 - Td or Tdap) 07/05/2029 07/06/2019, 10/27/2012, 07/21/2006, Additional history exists Pneumococcal vaccine <65 Aged Out 002, 2001, 2001 No longer eligible based on patient's age to complete this topic Varicella Vaccines Completed 11/05/2010, 03/14/2002 HPV Vaccines Completed 02/13/2016, 09/01, 10/27/2012 Insurance Care Teams Farmworker Rice Relationship Specialty Start Date End Date Unknown, Notinfile PCP - General 02/09/24
--- NOTE | 2024-06-08 05:38 | LDADM ---
This patient, Nesha Wilcox, was admitted to Labor/Delivery/Recovery 108 on 06/08/24 at 04:53. Plans for labor, pain management and were discussed with patient. Patient/family oriented to hospital policies and general routines including ID bracelet, bed and alarms, visiting hours, pain management, procedures, bathroom and other care routines, personal items, smoking policy, room service/diet and guest tray routines, security routines, and visiting hours. Patient/Family are encouraged to report perceived risks to care and to ask questions if they do not understand what they are told or what they should do. See OBIX for further documentation.
[2024-06-08 05:48] LABS: Basophils Percent Auto 0.3 % (0.2-1.2); Eosinophils Absolute Auto 0.1 K/mm3 (0-0.3); Eosinophils Percent Auto 0.6 % (0-4.4); Hematocrit 31.7 % (37.0-47.0); Hemoglobin 10.2 g/dL (12.0-15.0); Immature Granulocyte Absolute 0.05 K/mm3 (0.00-0.031); Immature Granulocyte Percent A 0.5 % (0-0.5); Lymphocytes Absolute Auto 2.25 K/mm3 (0.9-3.2); Lymphocytes Percent Auto 21.3 % (18.3-44.2); Mean Corpuscular HGB Conc 32.2 g/dl (32-36); Mean Corpuscular Hemoglobin 25.8 pg (26-34); Mean Corpuscular Volume 80.3 fl (80-100); Mean Platelet Volume 11.7 fl (7.4-10.4); Monocytes Absolute Auto 0.5 K/mm3 (0.1-0.6); Monocytes Percent Auto 4.6 % (2.6-8.5); Neutrophils Absolute Auto 7.7 K/mm3 (1.3-6.7); Neutrophils Percent Auto 72.7 % (45.5-73.1); Platelet Count Result 215 k/mm3 (150-375); Red Blood Count 3.95 M/mm3 (4.2-5.4); White Blood Count 10.6 K/mm3 (4.5-10.0)
[2024-06-08 05:59] LABS: Alanine Aminotransferase 15 U/L (6-35); Albumin Level 3.5 g/dL (3.5-5.1); Alkaline Phosphatase 154 U/L (38-126); Anion Gap 10 mmol/L (4-12); Aspartate Amino Transferase 18 U/L (14-36); Bilirubin,Total 0.4 mg/dL (0.2-1.3); Blood Urea Nitrogen 10 mg/dL (7-17); Calcium 9.1 mg/dL (8.4-10.2); Carbon Dioxide 19 mmol/L (22-30); Chloride 105 mmol/L (98-107); Estimated CRCL calculation 134 ml/min; Estimated Glomerular Filt Rate > 60; Glucose 107 mg/dL (65-110); Potassium 3.6 mmol/L (3.4-5.0); Sodium 134 mmol/L (137-145)
[2024-06-08 06:02] LABS: Uric Acid 4.7 mg/dL (2.5-7.5)
[2024-06-08] MEDS: LACTATED RINGERS 1,000 ML 125 ML IV CONT ×2 (06:18→08:40)
[2024-06-08] MEDS: OXYTOCIN 30 UNITS/NS 500 ML 30 UNITS/500 ML BAG IV CONT (06:29)
[2024-06-08 06:32] LABS: Hepatitis B Surface Antigen Negative (Negative)
[2024-06-08 06:32] LABS: Rubella IgG Antibody 2.7 IU/ML
[2024-06-08 06:39] LABS: Rapid Plasma Reagin Non-Reactive (NonReactive)
[2024-06-08 06:45] LABS: HIV 1/2 Ab P24 Ag Result Negative (Negative)
--- NOTE | 2024-06-08 07:28 | PM.IMHP ---
H&P: HPI History of Present Illness Date/Time: 06/08/24 07:28 Chief Complaint: Mildly elevated blood pressure at term Narrative: 24-year-old 3 para 1 at 39 weeks gestation for induction of labor secondary to elevated blood pressures. Her cervix is favorable. She transferred during the but had early visit confirming dates Review of Systems Review of Systems: CONSTITUTIONAL: Denies body aches, fever, chills, or sweats. CARDIOVASCULAR: Denies chest pain, palpitations, or edema. RESPIRATORY: Denies dyspnea. GASTROINTESTINAL: reports abdominal cramping,denies nausea, vomiting, or diarrhea. GENITOURINARY: Reports vaginal bleeding Denies dysuria or hematuria. SKIN: Denies rash, itching, or wounds. MUSCULOSKELETAL: reports back pain, Denies joint pain, or myalgia. NEUROLOGIC: Denies headache, numbness, tingling, or weakness. All systems reviewed & are unremarkable except as noted in HPI and below PMFSH Past Medical History Medical History Migraines Family History Family History Grandparent Diabetes mellitus Lung cancer Father Hypertension Other Thyroid gland insufficiency (acquired) Social History Social History Smoking status: Never smoker Second hand tobacco smoke exposure: No Substance use: never Do You Feel Safe in your Home?: Yes Lack of Transportation: No Lack of Food: Never True Current Housing: I Have Housing Concerned About Future Housing: No Difficulty Paying Gas/Electric Bills: No Difficulty Paying for Meds: No Currently Unemployed: No Education: High School Diploma/GED Difficulty w/ Childcare or Family Care: No Gender identity (if verbalized by the patient): Female Spiritual care concerns: No Meds Home Medications and Allergies Home Medications ?Medication ?Instructions ?Recorded ?Confirmed ?Type vitamins no.119-iron 1 tablet PO DAILY 03/31/24 06/08/24 History fumarate 29 mg-folic acid 1 mg tablet (Se-Cat-19) Allergies Allergy/AdvReac Type Severity Reaction Status Date / Time No Known Allergies Allergy Verified 06/08/24 05:58 Vital Signs Vital Signs - 24 hr 06/08/24 05:30 06/08/24 05:38 06/08/24 05:42 Temperature 97.6 F Pulse Rate 105 H Blood Pressure 133/82 Oxygen Delivery Room Air 06/08/24 06:00 06/08/24 06:30 Temperature Pulse Rate 93 98 Blood Pressure 138/85 131/81 Oxygen Delivery Exam Const: General: cooperative, healthy appearing, comfortable and overweight Orientation/consciousness: oriented to person, oriented to place and oriented to time Resp: Effort & Inspection: normal respiratory effort Cardio: Rate: regular rate Rhythm: regular rhythm Heart sounds: S1 normal heart sound present and S2 normal heart sound present GI: Inspection: normal to inspection ( gravid soft uterus) : External Female Exam: normal external appearance Speculum Exam - Vagina: normal appearance of the vagina Speculum Exam - Cervix: normal appearance of the cervix ( cervix 375/1. AROM clear. FHTs reassuring) H&P: Results Labs Labs: Short CBC 06/08/24 Range/Units 05:07 WBC 10.6 H (4.5-10.0) K/mm3 Hgb 10.2 L (12.0-15.0) g/dL Hct 31.7 L (37.0-47.0) % Plt Count 215 (150-375) k/mm3 BMP 06/08/24 05:08 Sodium 134 L Potassium 3.6 Chloride 105 Carbon Dioxide 19 L BUN 10 Creatinine 0.60 L Glucose 107 Calcium 9.1 Liver Function 06/08/24 Range/Units 05:08 Total Bilirubin 0.4 (0.2-1.3) mg/dL AST 18 (14-36) U/L ALT 15 (6-35) U/L Alkaline Phosphatase 154 H (38-126) U/L Albumin 3.5 (3.5-5.1) g/dL Assessment and Plan Assessment and plan (1) Term : Code(s): Z34.90 - Encounter for supervision of normal , unspecified, unspecified trimester Status: Acute (2) Gestational hypertension: Code(s): O13.9 - Gestational [-induced] hypertension without significant proteinuria, unspecified trimester Status: Acute Plan medical induction of labor. Spontaneous vaginal delivery is expected. She is an epidural candidate
--- NOTE | 2024-06-08 09:00 | WPDANESEPPF ---
Anes - Initial Pre Proc Eval Date/Time: 06/08/24 09:00 Surgeon: Morris Ledezma MD Pre Op Diagnosis: IOL Patient Data Age: 24 Gender: F Height: 1.6 m Weight: 92 kg Last Vital Signs Temp 36.4 C 06/08/24 05:30 Pulse 91 06/08/24 08:55 BP 129/83 06/08/24 08:55 Pulse Ox 99 06/08/24 08:57 O2 Del Method Room Air 06/08/24 05:38 Allergies Allergy/AdvReac Type Severity Reaction Status Date / Time No Known Allergies Allergy Verified 06/08/24 05:58 Home Medications ?Medication ?Instructions ?Recorded ?Confirmed ?Type vitamins no.119-iron 1 tablet PO DAILY 03/31/24 06/08/24 History fumarate 29 mg-folic acid 1 mg tablet (Se--19) Laboratory Tests 06/08/24 06/08/24 05:07 05:08 WBC 10.6 H K/mm3 (4.5-10.0) RBC 3.95 L M/mm3 (4.2-5.4) Hgb 10.2 L g/dL (12.0-15.0) Hct 31.7 L % (37.0-47.0) MCV 80.3 fl (80-100) MCH 25.8 L pg (26-34) MCHC 32.2 g/dl (32-36) RDW 14.0 % (11.5-14.5) Plt Count 215 k/mm3 (150-375) MPV 11.7 H fl (7.4-10.4) Immature Gran % (Auto) 0.5 % (0-0.5) Neut % (Auto) 72.7 % (45.5-73.1) Lymph % (Auto) 21.3 % (18.3-44.2) [place] % (Auto) 4.6 % (2.6-8.5) Eos % (Auto) 0.6 % (0-4.4) Baso % (Auto) 0.3 % (0.2-1.2) Lymph # (Auto) 2.25 K/mm3 (0.9-3.2) [place] # (Auto) 0.5 K/mm3 (0.1-0.6) Eos # (Auto) 0.1 K/mm3 (0-0.3) Baso # (Auto) 0.0 K/mm3 (0.0-0.1) Abs Immat Gran (auto) 0.05 H K/mm3 (0.00-0.031) Absolute Neuts (auto) 7.7 H K/mm3 (1.3-6.7) Absolute Nucleated RBC 0.000 K/mm3 (0.0-0.012) Nucleated RBC % 0.0 % (0.0-0.2) Sodium 134 L mmol/L (137-145) Potassium 3.6 mmol/L (3.4-5.0) Chloride 105 mmol/L (98-107) Carbon Dioxide 19 L mmol/L (22-30) Anion Gap 10 mmol/L (4-12) BUN 10 mg/dL (7-17) Creatinine 0.60 L mg/dL (0.7-1.0) Estim Creat Clear Calc 134 ml/min Estimated GFR > 60 (59 - ) Glucose 107 mg/dL (65-110) Uric Acid 4.7 mg/dL (2.5-7.5) Calcium 9.1 mg/dL (8.4-10.2) Total Bilirubin 0.4 mg/dL (0.2-1.3) AST 18 U/L (14-36) ALT 15 U/L (6-35) Alkaline Phosphatase 154 H U/L (38-126) Total Protein 7.0 g/dL (6.3-8.2) Albumin 3.5 g/dL (3.5-5.1) RPR Non-reactive (NonReactive) Hep Bs Antigen Negative (Negative) HIV 1&2 Ab/P24 Ag 4thGn Negative (Negative) Rubella IgG Antibody 2.7 L IU/ML (10 - ) Blood Type O Positive Antibody Screen Negative Patient hx anesthesia problems: none Family hx anesthesia problems: none Results Review: All pre-operative results and documents have been reviewed as part of the pre-operative evaluation. [facility] Past Medical History Medical History Migraines Family History Family History Grandparent Diabetes mellitus Lung cancer Father Hypertension Other Thyroid gland insufficiency (acquired) Social History Social History Smoking status: Never smoker Second hand tobacco smoke exposure: No Substance use: never Do You Feel Safe in your Home?: Yes Lack of Transportation: No Lack of Food: Never True Current Housing: I Have Housing Concerned About Future Housing: No Difficulty Paying Gas/Electric Bills: No Difficulty Paying for Meds: No Currently Unemployed: No Education: High School Diploma/GED Difficulty w/ Childcare or Family Care: No Gender identity (if verbalized by the patient): Female Spiritual care concerns: No Anes - Eval Final PreProcedure Day of Procedure 06/08/24 09:00 Patient weight: obese Heart: regular rate and rhythm Lungs: clear to auscultation Airway: Mallampati scale class II Neurological: alert and oriented Last oral intake: >/= 8 hours ASA classification: III Emergent: no Anesthetic plan: proceed Anesthesia type and monitoring: regional epidural and standard monitoring Results Review: All pre-operative results and documents have been reviewed as part of the pre-operative evaluation. Informed Consent: The patient's anesthetic plan and its attendant risks and benefits were discussed with the patient/family/POA. Questions were solicited and answers provided to the satisfaction of the patient/family/POA.
--- NOTE | 2024-06-08 11:53 | PM.OBPNLAB ---
Pain Control Date/time seen: 06/08/24 11:53 Pain control: tolerating well and epidural Pelvic Exam Dilation (cm): 4 Effacement (%): 80 station: -2
[2024-06-08] MEDS: ONDANSETRON INJ 4 MG/2 ML VIAL IV PUSH (12:01)
[2024-06-08] MEDS: ACETAMINOPHEN 325 MG TABLET 650 MG PO (12:02)
--- NOTE | 2024-06-08 12:35 | P.PCNOB_ITS ---
OB - Vaginal Delivery Note Procedure Delivery date: 06/08/24 Events: Gestational Hypertension Induction method: AROM Delivery augmentation: Pitocin Delivery monitor: External FHT, External Uterine and Internal Uterine Route of delivery: Episiotomy description: None Laceration Description: None Specimen: No Quantitative Blood Loss (ml): 62 Anesthesia type: Epidural Disposition: Floor Complications: No immediate complications Narrative: Patient was admitted for induction of labor secondary to mildly elevated blood pressures at 39 weeks gestation artificial rupture membranes performed in the a.m. she progressed the rapid 1st stage of labor had epidural anesthesia placed an IUPC placed and she pushed delivered head spontaneously in the BRENT position. Anterior posterior shoulder delivered spontaneously. Cord clamped x2 and cut passed off the table given Apgars of 9 [id number] 9 [id number]. Cord blood was drawn. Placenta delivered intact spontaneously. Twenty of Pitocin placed in IV to help firm the uterus. After inspecting the vagina no injury was seen blood loss was estimated at62cc by QBL. All sponge, needle, instrument counts were correct. There were no immediate complications [place] Baby Date of : 06/08/24 Time of : 12:29 Gestational Age by Date: 39 Infant gender: Male presentation: vertex position: Left Occiput Anterior Placenta delivery description: Spontaneous Cord Vessel Description: 3 Vessels score one minute: 9 score five minutes: 9
--- NOTE | 2024-06-08 12:36 | P.DS_ITS ---
DS: Admitting Diagnosis Discharge Date 06/09/2024 Admitting Diagnosis gestational hypertension/term DS: Discharge Diagnosis Discharge Diagnosis (1) Term delivered: Code(s): O80 - Encounter for full-term uncomplicated delivery Status: Acute (2) Gestational hypertension: Code(s): O13.9 - Gestational [-induced] hypertension without significant proteinuria, unspecified trimester Status: Acute DS: Summary Hospital Course Reason for hospitalization: patient was admitted for induction of labor at 39 weeks gestation on 06/08/2024 and underwent unremarkable spontaneous vaginal delivery with epidural anesthesia Hospital Course: patient's hospital course unremarkable. She remained afebrile. She was up, voiding without difficulty, eating regular diet, ambulating, and generally without complaints. Time Spent with Patient Time attestation: Total time spent providing and/or coordinating discharge services: Exam Const: General: cooperative, healthy appearing and comfortable Nutritional Appearance: average body habitus Orientation/consciousness: oriented to person, oriented to place and oriented to time Resp: Effort & Inspection: normal respiratory effort Cardio: Rate: regular rate Rhythm: regular rhythm Heart sounds: S1 normal heart sound present and S2 normal heart sound present GI: Inspection: normal to inspection ( Fundus firm below umbilicus) DS: Data Data Completed and Pending Labs on day of discharge: Labs from last 24 hours 06/08/24 06/08/24 05:08 05:07 WBC 10.6 H RBC 3.95 L Hgb 10.2 L Hct 31.7 L MCV 80.3 MCH 25.8 L MCHC 32.2 RDW 14.0 Plt Count 215 MPV 11.7 H Immature Gran % (Auto) 0.5 Neut % (Auto) 72.7 Lymph % (Auto) 21.3 [place] % (Auto) 4.6 Eos % (Auto) 0.6 Baso % (Auto) 0.3 Lymph # (Auto) 2.25 [place] # (Auto) 0.5 Eos # (Auto) 0.1 Baso # (Auto) 0.0 Abs Immat Gran (auto) 0.05 H Absolute Neuts (auto) 7.7 H Absolute Nucleated RBC 0.000 Nucleated RBC % 0.0 Sodium 134 L Potassium 3.6 Chloride 105 Carbon Dioxide 19 L Anion Gap 10 BUN 10 Creatinine 0.60 L Estim Creat Clear Calc 134 Estimated GFR > 60 Glucose 107 Uric Acid 4.7 Calcium 9.1 Total Bilirubin 0.4 AST 18 ALT 15 Alkaline Phosphatase 154 H Total Protein 7.0 Albumin 3.5 RPR Non-reactive Hep Bs Antigen Negative HIV 1&2 Ab/P24 Ag 4thGn Negative Rubella IgG Antibody 2.7 L Blood Type O Positive Antibody Screen Negative Discharge Plan Discharge Attending physician on discharge: Morris Gallardo Discharging Clinician: Morris Gallardo Patient Disposition: Home, Self-Care Activity: may shower, no straining and pelvic rest Diet: heart healthy Wound Care Instructions: follow printed instructions Patient Instructions: Antibiotic Form Patient Language: [place] Stand Alone Forms: General Discharge Information Follow-up/Referrals: Morris Gallardo MD [Physician] - Discharge Medications: Continued Se-Cat-19 29 mg iron- 1 mg tablet 1 tablet PO DAILY Date of admission: 06/08/24 04:53 Primary Care Provider: UNKNOWN,DOCTOR Admitting Provider: Morris Gallardo Attending physician on admission: Morris Gallardo Condition: Stable
[2024-06-08] MEDS: OXYTOCIN 30 UNITS/NS 500 ML 30 UNITS/500 ML BAG 125 UNITS IV CONT (13:07)
--- NOTE | 2024-06-08 17:16 | OBPPTRN ---
1651-Patient transferred to post room #290 via wheelchair. Support person present. Oriented to unit, room, information board, rooming in, admission packet and security measures. Patient verbalizes understanding.
[2024-06-08] MEDS: IBUPROFEN 600 MG TABLET PO (19:16)
[2024-06-09 01:22] VITALS: BP 122/80; PULSE 74; RESP 16; TEMP 36.4; O2SAT 99
[2024-06-09 05:20] VITALS: BP 131/91; PULSE 96; O2SAT 99
[2024-06-09] MEDS: ACETAMINOPHEN 325 MG TABLET 650 MG PO ×2 (05:22→12:23)
[2024-06-09] MEDS: IBUPROFEN 600 MG TABLET PO ×2 (05:25→12:22)
[2024-06-09 07:49] VITALS: BP 141/90; PULSE 86; RESP 16; TEMP 36.6; O2SAT 100
--- NOTE | 2024-06-09 07:54 | PC.NURSE ---
Intake and output tab was completed on this patient inappropriately. Other PP RN helped verify and reactivate Intake and Output tab for this patient.
--- NOTE | 2024-06-09 07:57 | P.PNOB_ITS ---
OB - PN: Subj Subjective Date/time seen: 06/09/24 07:57 Patient comments: no complaints, pain well controlled and tolerating diet Adel baby status: doing well OB - PN: Obj Data Labs 06/08/24 05:07 06/08/24 05:08 OB - PN A/P Assessment and Plan (1) Term delivered: Code(s): O80 - Encounter for full-term uncomplicated delivery Status: Acute (2) Gestational hypertension: Code(s): O13.9 - Gestational [-induced] hypertension without significant proteinuria, unspecified trimester Status: Acute Plan home Time Spent With Patient Time: Total time spent is greater than 50% in coordination of care (as documented) at patient's floor/unit and/or counseling patient: Review of Systems 2 Review of Systems: CONSTITUTIONAL: Denies body aches, fever, chills, or sweats. CARDIOVASCULAR: Denies chest pain, palpitations, or edema. RESPIRATORY: Denies dyspnea. GASTROINTESTINAL: reports abdominal cramping,denies nausea, vomiting, or diarrhea. GENITOURINARY: Reports vaginal bleeding Denies dysuria or hematuria. SKIN: Denies rash, itching, or wounds. MUSCULOSKELETAL: reports back pain, Denies joint pain, or myalgia. NEUROLOGIC: Denies headache, numbness, tingling, or weakness. All systems reviewed & are unremarkable except as noted in HPI and below Exam 2 Const: General: cooperative, healthy appearing and comfortable O rientation/consciousness: oriented to person, oriented to place and oriented to time Resp: Effort & Inspection: normal respiratory effort Cardio: Rate: regular rate Rhythm: regular rhythm Heart sounds: S1 normal heart sound present and S2 normal heart sound present GI: Inspection: normal to inspection
[2024-06-09 08:00] VITALS: PULSE 86; RESP 16; O2SAT 100
--- NOTE | 2024-06-09 10:43 | WPDANLDPN2 ---
Anes-Prog Note L&D Date/Time: 06/09/24 10:43 Comfortable throughout: labor (some right sided back pain but otherwise asymptomatic) and delivery Neuraxial method: epidural Epidural/Spinal procedure site: clean & non-tender Neuro status: Neuro function grossly intact. Cardiovascular status: normal Respiratory status: normal Airway patency: baseline Mental status: baseline Post-Op hydration status: normal Vital Signs: Last Vital Signs Temp 97.9 F 06/09/24 07:49 Pulse 86 06/09/24 07:49 Resp 16 06/09/24 07:49 BP 141/90 H 06/09/24 07:49 Pulse Ox 100 06/09/24 07:49 O2 Del Method Room Air 06/08/24 20:50 Pain score (VAS): 0/10 I/O: Intake & Output 06/08/24 06/09/24 06/09/24 23:59 07:59 15:59 Intake Total 150 Output Total 240 Balance -90 Post-procedural complaints: none Patient feedback: Patient satisfied with anesthetic care.
[2024-06-09] MEDS: MEASLES,MUMPS,RUBELLA VACCINE 0.5 ML VIAL SUB-Q (11:07)
[2024-06-09 11:13] VITALS: BP 137/82; PULSE 82; RESP 18; TEMP 36.8; O2SAT 100
[2024-06-09 11:57] LABS: Hematocrit 33.7 % (37.0-47.0); Hemoglobin 10.7 g/dL (12.0-15.0)
[2024-06-10 10:24] VITALS: BP 132/76; PULSE 101; RESP 20; TEMP 37.3; O2SAT 99
== END 2024-06-09 21:15 | disposition home or self-care (01) | DRG 560 ==
LOC: ANHLDR 12:38 → ANHOB2 16:55
PROVIDERS: Admitting Provider Obstetrics & Gynecology; Visit Provider Obstetrics & Gynecology
DX: O13.4 Gestational [pregnancy-induced] hypertension without significant proteinuria, complicating childbirth (principal); Z3A.39 39 weeks gestation of pregnancy; Z37.0 Single live birth
CPT/HCPCS: 36415; 80053; 84550; 85014; 85018; 85025; 86592; 86703; 86762; 86850; 86900; 86901; 87340; 90710; A9270; G0432; J2405; J2590; J2795; J7120